=== PATIENT | female | born 1980 | race Hispanic/Latino ===

== ENCOUNTER 2018-09-27 22:15 | Emergency (ER) | payer BC ==
[~2018-09-27 22:15] MED LIST: CHLO25TA3 PO; POTA15TA11 PO; TAMS-1 PO
[2018-09-27 23:13] LABS: APPEARANCE,URINE Clear (CLEAR); BILIRUBIN,URINE Negative (NEGATIVE); COLOR,URINE Yellow (YELLOW); GLUCOSE, URINE (UA) Negative (NEGATIVE); KETONES,URINE Negative (NEGATIVE); LEUKOCYTE ESTERASE ,URINE Trace (NEGATIVE); NITRATE,URINE Negative (NEGATIVE); OCCULT BLOOD,URINE Large (NEGATIVE); PROTEIN,URINE Trace mg/dL (NEGATIVE)
[2018-09-27 23:27] LABS: BACTERIA,URINE Few /HPF (None Seen); CALCIUM OXALATE CRYSTALS,UR Rare /LPF (None Seen); SQUAMOUS EPITHELIAL CELL,UR Few /HPF (0-2)
[2018-09-27] MEDS ORDERED: ONDANSETRON HCL 4 MG/2 ML VIAL ONE (23:29)
[2018-09-27] MEDS ORDERED: SODIUM CHLORIDE 0.9% 1000ML 1,000 ML IV ONE (23:30)
[2018-09-27] MEDS ORDERED: MORPHINE SULFATE 4 MG/1ML SYG ONE (23:30)
[2018-09-27 23:31] LABS: BASOPHILS % (AUTO) 0.6 % (0.0-5.0); EOSINOPHILS % (AUTO) 1.2 % (0.0-8.0); HEMATOCRIT 40.6 % (36-48); LYMPHOCYTES % (AUTO) 27.6 % (21.0-51.0); MEAN CORPUSCULAR HGB CONC 33.7 g/dL (32.0-36.0); MEAN CORPUSCULAR VOLUME 86.1 fL (79-99); MONOCYTES % (AUTO) 6.8 % (3.0-13.0); NEUTROPHILS % (AUTO) 63.8 % (40.0-77.0); NUCLEATED RED BLOOD CELLS 0.1 % (0.0-0.19); PLATELET COUNT (AUTO) 315 K/uL (130-400); RED BLOOD CELL COUNT(AUTO) 4.72 MIL/uL (4.00-5.50); RED CELL DISTRIBUTION WIDTH 13.9 % (11.0-15.5); WHITE BLOOD COUNT (AUTO) 11.1 K/uL (4.8-10.8)
[2018-09-27 23:38] LABS: POTASSIUM 4.3 mmol/L (3.5-5.1)
[2018-09-27 23:52] LABS: ALBUMIN 3.6 g/dL (3.5-5.0); BILIRUBIN,TOTAL 0.2 mg/dL (0.2-1.0); CREATININE 0.7 mg/dL (0.5-1.5); TOTAL PROTEIN, SERUM 7.2 g/dL (6.0-8.3)
[2018-09-28] MEDS ORDERED: KETOROLAC TROMETHAMINE 30MG/ML ONE (01:09)
== END 2018-09-28 01:31 | disposition home or self-care (01) ==
LOC: EDH 22:15
DX: N20.0 Calculus of kidney (principal); R11.2 Nausea with vomiting, unspecified; Z98.890 Other specified postprocedural states; Z90.49 Acquired absence of other specified parts of digestive tract
CPT/HCPCS: 36415; 74176; 80053; 81001; 81025; 83690; 85025; 96361 ×2; 96374; 96375 ×2; 99285; J1885; J2270; J2405; J7030

== ENCOUNTER 2018-11-05 11:55 | Inpatient (IN) | payer BC | END 2018-11-06 17:05 | disposition home or self-care (01) | LOC: EDH 11:55 → WSH 11-06 00:31 → EDHIP 16:44 ==

== ENCOUNTER 2018-11-17 13:50 | Inpatient (IN) | payer BC ==
[~2018-11-17] VITALS: Ht 162.6 cm; Wt 97.2 kg
[2018-11-17] MEDS ORDERED: SODIUM CHLORIDE 0.9% 1000ML 1,000 ML IV ONE ×2 (14:21→19:40)
[2018-11-17] MEDS ORDERED: ONDANSETRON HCL 4 MG/2 ML VIAL ONE (14:21)
[2018-11-17] MEDS ORDERED: KETOROLAC TROMETHAMINE 30MG/ML ONE (14:21)
[2018-11-17 14:28] LABS: BASOPHILS % (AUTO) 0.7 % (0.0-5.0); EOSINOPHILS % (AUTO) 0.8 % (0.0-8.0); HEMATOCRIT 39.7 % (36-48); LYMPHOCYTES % (AUTO) 18.5 % (21.0-51.0); MEAN CORPUSCULAR HEMOGLOBIN 29.3 pg (27.0-33.0); MEAN CORPUSCULAR HGB CONC 34.2 g/dL (32.0-36.0); MEAN CORPUSCULAR VOLUME 85.6 fL (79-99); MONOCYTES % (AUTO) 6.3 % (3.0-13.0); NEUTROPHILS % (AUTO) 73.7 % (40.0-77.0); PLATELET COUNT (AUTO) 325 K/uL (130-400); RED BLOOD CELL COUNT(AUTO) 4.64 MIL/uL (4.00-5.50); RED CELL DISTRIBUTION WIDTH 13.9 % (11.0-15.5); WHITE BLOOD COUNT (AUTO) 11.5 K/uL (4.8-10.8)
[2018-11-17 14:43] LABS: CARBON DIOXIDE 21 mmol/L (21-32); CHLORIDE 107 mmol/L (101-111); CREATININE 0.7 mg/dL (0.5-1.5); GLOMERULAR FILTR. RATE CALC 100 mL/min (>60); GLUCOSE,RANDOM 108 mg/dL (70-105); INR 1.02 (0.85-1.15); PARTIAL THROMBOPLASTIN TIME 27.2 SEC (26.3-35.5); POTASSIUM 4.4 mmol/L (3.5-5.1); PROTHROMBIN TIME 10.7 SEC (9.6-11.6); SODIUM SERUM 139 mmol/L (136-145); UREA NITROGEN, BLOOD 14 mg/dL (7-18)
[2018-11-17 14:53] LABS: ALANINE AMINOTRANSFERASE 42 U/L (12-78); ALBUMIN 3.5 g/dL (3.5-5.0); ASPARTATE AMINOTRANSFERASE 36 U/L (10-37); BILIRUBIN,DIRECT < 0.1 mg/dL (0.0-0.3); BILIRUBIN,TOTAL 0.3 mg/dL (0.2-1.0); HCG,QUANTITATIVE 0 mIU/mL (0-5); LIPASE 148 U/L (114-286); TOTAL PROTEIN, SERUM 7.5 g/dL (6.0-8.3)
[2018-11-17] MEDS ORDERED: MORPHINE SULFATE 4 MG/1ML SYG ONE (15:08)
[2018-11-17] MEDS ORDERED: DiphenhydrAMINE HCL 50 MG/ML VIAL ONE ×2 (15:38→19:55)
[2018-11-17] MEDS ORDERED: MORPHINE SULFATE 2 MG/ML 1ML SYG IV PRN (19:00)
[2018-11-17] MEDS ORDERED: ONDANSETRON HCL 4 MG/2 ML VIAL IV PRN (19:00)
[2018-11-17] MEDS ORDERED: MORPHINE SULFATE 4 MG/1ML SYG IV PRN (19:00)
[2018-11-17] MEDS ORDERED: ACETAMINOPHEN 325 MG TAB PO PRN ×2 (19:00)
[2018-11-17] MEDS ORDERED: ZOLPIDEM TARTRATE 5 MG TAB PO PRN (19:00)
[2018-11-17] MEDS ORDERED: MORPHINE SULFATE 2 MG/ML 1ML SYG ONE (19:40)
[2018-11-17] MEDS ORDERED: DiphenhydrAMINE HCL 50 MG/ML VIAL IV PRN (20:00)
[2018-11-17 21:36] VITALS: BP 102/58
[2018-11-17] MEDS: SODIUM CHLORIDE 0.9% 1000ML 1,000 ML IV SCH (22:58)
[2018-11-17] MEDS: FAMOTIDINE/PF 20 MG/2 ML VIAL IV SCH (22:58)
[2018-11-17] MEDS: HYDROMORPHONE 1 MG/1 ML AMP IVP PRN (22:59)
[2018-11-18] VITALS (25 sets, daily range): BP systolic 91–126; BP diastolic 56–74
[2018-11-18 02:23] LABS: APPEARANCE,URINE Clear (CLEAR); BILIRUBIN,URINE Negative (NEGATIVE); COLOR,URINE Yellow (YELLOW); GLUCOSE, URINE (UA) Negative (NEGATIVE); KETONES,URINE Negative (NEGATIVE); LEUKOCYTE ESTERASE ,URINE Negative (NEGATIVE); NITRATE,URINE Negative (NEGATIVE); OCCULT BLOOD,URINE Negative (NEGATIVE); PH,URINE 5.5 (5.0-8.0); PROTEIN,URINE Negative (NEGATIVE)
[2018-11-18 02:24] LABS: BASOPHILS % (AUTO) 0.3 % (0.0-5.0); EOSINOPHILS % (AUTO) 2.1 % (0.0-8.0); HEMATOCRIT 38.8 % (36-48); MEAN CORPUSCULAR HEMOGLOBIN 29.9 pg (27.0-33.0); MEAN CORPUSCULAR HGB CONC 33.9 g/dL (32.0-36.0); MEAN CORPUSCULAR VOLUME 88.2 fL (79-99); MONOCYTES % (AUTO) 6.4 % (3.0-13.0); NEUTROPHILS % (AUTO) 60.2 % (40.0-77.0); PLATELET COUNT (AUTO) 311 K/uL (130-400); RED CELL DISTRIBUTION WIDTH 13.9 % (11.0-15.5); WHITE BLOOD COUNT (AUTO) 9.8 K/uL (4.8-10.8)
[2018-11-18 02:44] LABS: ALBUMIN 3.2 g/dL (3.5-5.0); BILIRUBIN,TOTAL 0.3 mg/dL (0.2-1.0); CREATININE 0.8 mg/dL (0.5-1.5); POTASSIUM 3.9 mmol/L (3.5-5.1); TOTAL PROTEIN, SERUM 6.8 g/dL (6.0-8.3)
[2018-11-18] MEDS ORDERED: LEVOFLOXACIN 500 MG/D5W 100 ML 100 ML IV SCH (03:00)
[2018-11-18] MEDS: SODIUM CHLORIDE 0.9% 1000ML 1,000 ML IV SCH ×2 (04:48→14:50)
[2018-11-18] MEDS: HYDROMORPHONE 1 MG/1 ML AMP IVP PRN ×3 (06:17→17:58)
[2018-11-18] MEDS ORDERED: HYDROCHLOROTHIAZIDE 25 MG TABLET PO SCH (09:00)
[2018-11-18] MEDS: FAMOTIDINE/PF 20 MG/2 ML VIAL IV SCH (09:39)
[2018-11-18] MEDS ORDERED: IOHEXOL-350 50ML VIAL IV ONE (10:57)
[2018-11-18] MEDS ORDERED: LACTATED RINGERS 1000ML 1,000 ML IV ONE (11:09)
[2018-11-18] MEDS ORDERED: PROPOFOL 10 MG/ML 20ML VIAL IV ONE (12:01)
[2018-11-18] MEDS ORDERED: LIDOCAINE PF 2% 5ML ABBOJECT ONE (12:01)
[2018-11-18] MEDS ORDERED: MIDAZOLAM HCL 1 MG/ML 2ML VIAL ONE (12:01)
[2018-11-18] MEDS ORDERED: FENTANYL CITRATE PF 50 MCG/1 ML 2ML VIAL ONE ×2 (12:02→12:17)
--- NOTE | 2018-11-18 12:04 | NUR ---
DCP CM met with pt discussed dc plans. Pt is independent prior to admission, lives at home with spouse. Denies any equipments/services. Pt feels safe to go back home, still drives, spouse able to assist with transportation and needs as necessary. DC plan to home once stable. CM to cont to follow up. Addendum: 11/18/18 at 1208 by LARA DILLON LVN CM Amended: Links added.
[2018-11-18] MEDS ORDERED: DEXAMETHASONE SOD PHOSPHATE 10MG/ML 1ML VIAL ONE ×2 (12:08→12:23)
[2018-11-18] MEDS ORDERED: ONDANSETRON HCL 4 MG/2 ML VIAL ONE (12:09)
[2018-11-18] MEDS ORDERED: SCOPOLAMINE HYDROBROMIDE 1 EACH ADH..PATCH TD ONE (12:11)
[2018-11-18] MEDS ORDERED: MEPERIDINE-PF 25 MG/ML SYG ONE ×2 (12:17→13:43)
[2018-11-18] MEDS ORDERED: EPHEDRINE SULFATE 50 MG/ML AMPULE ONE (12:21)
[2018-11-18] MEDS ORDERED: ROCURONIUM 10MG/1ML SYR 10 MG/ML ML ONE (12:33)
[2018-11-18] MEDS ORDERED: GLYCOPYRROLATE 1 MG/5 ML SYRINGE ONE (12:46)
[2018-11-18] MEDS ORDERED: NEOSTIGMINE 5MG/5ML SYR IV ONE (12:47)
[2018-11-18] MEDS ORDERED: MORPHINE SULFATE 4 MG/1ML SYG ONE (13:41)
--- NOTE | 2018-11-18 17:30 | NUR ---
PT VOIDED WITHOUT DIFFICULTY. NO BLOOD.
--- NOTE | 2018-11-18 17:40 | NUR ---
PT D/C HOME USING TEACH BACK TECHNIQUE RE: FOLLOW UP WITH DR. SAPP NEXT THURSDAY CALL TO SET UP TIME OF APPOINTMENT. AT PHONE #[phone]. FOR REMOVAL OF RENAL STENT. FOLLOW UP WITH PRIMARY DOCTOR IN 3-4 DAYS. CALL TO SET UP YOUR APPOINTMENT. WILL BE GIVEN A PRESCRIPTION FOR ANTIBIOTICS AT DISCHARGE MAKE SURE TO PICK IT UP AT YOUR PREFERRED PHARMACY. MAKE SURE TO COMPLETE FULL COURSE OF ANTIBIOTIC THERAPY TO PREVENT SUPER INFECTIONS. IF FEVERS GREATER THAN 101.0 CALL YOUR PRIMARY DOCTOR COULD MEAN INFECTION IS BACK. IV OUT INTACT, NO BLEEDING, STRING ATTACHED TO SUPRAPUBIC AREA WITH TEGADERM. AAOX3, IN NO DISTRESS, DENIES ANY QUESTIONS. PRESCRIPTION FOR ANTIBIOTIC LEVAQUIN 500MG DAILY X 7 DAYS CALLED IN TO PHARMACY AT [facility] AT [address] [facility].
[2018-11-19] MEDS ORDERED: **HM** CHLORTHALIDONE 25MG PO SCH (09:00)
[2018-11-19] MEDS ORDERED: TAMSULOSIN HCL 0.4 MG CAP.ER.24H PO SCH (09:00)
[2018-11-19] MEDS ORDERED: POTASSIUM CITRATE 30 MEQ PO SCH (09:00)
== END 2018-11-18 18:15 | disposition home or self-care (01) | DRG 660 ==
LOC: EDH 13:50 → EDHIP 18:50 → 3AH 21:36
PROVIDERS: ADMIT Internal Medicine; ATTEND Internal Medicine
PROC: 0TF48ZZ Fragmentation in Left Kidney Pelvis, Via Natural or Artificial Opening Endoscopic (ICD-10-PCS; principal; 2018-11-18 12:45)
PROC: 0T778DZ Dilation of Left Ureter with Intraluminal Device, Via Natural or Artificial Opening Endoscopic (ICD-10-PCS; 2018-11-18 12:45)
DX: N20.0 Calculus of kidney (principal); Q61.5 Medullary cystic kidney; D72.829 Elevated white blood cell count, unspecified; N29 Other disorders of kidney and ureter in diseases classified elsewhere; N83.202 Unspecified ovarian cyst, left side; Z87.442 Personal history of urinary calculi; Z90.710 Acquired absence of both cervix and uterus; Z88.5 Allergy status to narcotic agent; Z83.3 Family history of diabetes mellitus; Z80.9 Family history of malignant neoplasm, unspecified; Z84.1 Family history of disorders of kidney and ureter
CPT/HCPCS: 36415; 74018; 74176; 74420; 77002; 80048; 80053; 80076; 81003; 83690; 84702; 85025; 85610; 85730; 87040; 87088; A4354; C1758; C1769; C2617; G0378; J1100; J1170; J1200; J1885; J1956; J2001; J2175; J2250; J2270; J2405; J2704; J2710; J3010; J3490; J7030; J7120; Q9967

== ENCOUNTER 2019-04-01 22:56 | Emergency (ER) | payer BC ==
[2019-04-01 23:25] LABS: BASOPHILS % (AUTO) 0.4 % (0.0-5.0); HEMATOCRIT 40.5 % (36-48); LYMPHOCYTES % (AUTO) 31.9 % (21.0-51.0); MEAN CORPUSCULAR HEMOGLOBIN 28.4 pg (27.0-33.0); MEAN CORPUSCULAR HGB CONC 33.1 g/dL (32.0-36.0); MEAN CORPUSCULAR VOLUME 85.8 fL (79-99); NEUTROPHILS % (AUTO) 57.4 % (40.0-77.0); PLATELET COUNT (AUTO) 330 K/uL (130-400); RED BLOOD CELL COUNT(AUTO) 4.72 MIL/uL (4.00-5.50); RED CELL DISTRIBUTION WIDTH 12.8 % (11.0-15.5); WHITE BLOOD COUNT (AUTO) 10.1 K/uL (4.8-10.8)
[2019-04-01 23:26] LABS: APPEARANCE,URINE Clear (CLEAR); BILIRUBIN,URINE Negative (NEGATIVE); COLOR,URINE Yellow (YELLOW); GLUCOSE, URINE (UA) Negative (NEGATIVE); KETONES,URINE Trace mg/dL (NEGATIVE); LEUKOCYTE ESTERASE ,URINE Negative (NEGATIVE); NITRATE,URINE Negative (NEGATIVE); OCCULT BLOOD,URINE Negative (NEGATIVE); PH,URINE 5.5 (5.0-8.0); PROTEIN,URINE Negative (NEGATIVE)
[2019-04-01] MEDS ORDERED: ONDANSETRON HCL 4 MG/2 ML VIAL ONE (23:28)
[2019-04-01] MEDS ORDERED: MORPHINE SULFATE 4 MG/1ML SYG ONE (23:28)
[2019-04-01 23:31] LABS: CREATININE 0.6 mg/dL (0.5-1.5); POTASSIUM 3.6 mmol/L (3.5-5.1)
[2019-04-01 23:36] LABS: ALBUMIN 3.7 g/dL (3.5-5.0); BILIRUBIN,TOTAL 0.3 mg/dL (0.2-1.0); TOTAL PROTEIN, SERUM 7.5 g/dL (6.0-8.3)
[2019-04-02] MEDS ORDERED: KETOROLAC TROMETHAMINE 15MG/ML ONE (00:29)
== END 2019-04-02 02:23 | disposition home or self-care (01) ==
LOC: EDH 22:56
DX: N20.2 Calculus of kidney with calculus of ureter (principal); R11.10 Vomiting, unspecified; Z98.890 Other specified postprocedural states; Z90.49 Acquired absence of other specified parts of digestive tract; Z90.710 Acquired absence of both cervix and uterus
CPT/HCPCS: 36415; 76770; 80053; 81003; 85025; 96374; 96375 ×2; 99284; J1885; J2270; J2405

== ENCOUNTER 2019-04-11 16:09 | Emergency (ER) | payer BC ==
[2019-04-11] MEDS ORDERED: KETOROLAC TROMETHAMINE 30MG/ML ONE (17:08)
[2019-04-11 17:36] LABS: APPEARANCE,URINE Cloudy (CLEAR); BILIRUBIN,URINE Negative (NEGATIVE); COLOR,URINE Yellow (YELLOW); GLUCOSE, URINE (UA) Negative (NEGATIVE); KETONES,URINE Negative (NEGATIVE); LEUKOCYTE ESTERASE ,URINE Trace (NEGATIVE); NITRATE,URINE Negative (NEGATIVE); OCCULT BLOOD,URINE Large (NEGATIVE); PROTEIN,URINE POS 1+ mg/dL (NEGATIVE); UROBILINOGEN,URINE 0.2 mg/dL (0.2-1.0)
[2019-04-11 17:45] LABS: HCG,QUAL RESULT NEGATIVE (NEGATIVE)
[2019-04-11 17:59] LABS: RBC,URINE 26-50 /HPF (0-1); WBC,URINE 0-1 /HPF (0-1)
[2019-04-11 18:00] LABS: BACTERIA,URINE Few /HPF (None Seen)
== END 2019-04-11 17:52 | disposition left against medical advice (07) ==
LOC: EDH 16:09
DX: R10.9 Unspecified abdominal pain (principal); Z90.49 Acquired absence of other specified parts of digestive tract; Z90.710 Acquired absence of both cervix and uterus; Z98.890 Other specified postprocedural states
CPT/HCPCS: 81001; 81025; 99283; J1885

== ENCOUNTER 2019-06-06 15:55 | Emergency (ER) | payer BC ==
[2019-06-06 16:34] LABS: BASOPHILS % (AUTO) 0.3 % (0.0-5.0); EOSINOPHILS % (AUTO) 0.7 % (0.0-8.0); HEMATOCRIT 40.2 % (36-48); LYMPHOCYTES % (AUTO) 22.2 % (21.0-51.0); MEAN CORPUSCULAR HEMOGLOBIN 28.5 pg (27.0-33.0); MEAN CORPUSCULAR HGB CONC 33.3 g/dL (32.0-36.0); MEAN CORPUSCULAR VOLUME 85.4 fL (79-99); MONOCYTES % (AUTO) 5.3 % (3.0-13.0); PLATELET COUNT (AUTO) 307 K/uL (130-400); RED BLOOD CELL COUNT(AUTO) 4.71 MIL/uL (4.00-5.50); RED CELL DISTRIBUTION WIDTH 12.7 % (11.0-15.5); WHITE BLOOD COUNT (AUTO) 8.7 K/uL (4.8-10.8)
[2019-06-06 16:51] LABS: INR 0.98 (0.85-1.15); PARTIAL THROMBOPLASTIN TIME 28.7 SEC (26.3-35.5); PROTHROMBIN TIME 10.6 SEC (9.6-11.6)
[2019-06-06 16:53] LABS: APPEARANCE,URINE Cloudy (CLEAR); BILIRUBIN,URINE Negative (NEGATIVE); COLOR,URINE Yellow (YELLOW); GLUCOSE, URINE (UA) Negative (NEGATIVE); KETONES,URINE Negative (NEGATIVE); LEUKOCYTE ESTERASE ,URINE Small (NEGATIVE); NITRATE,URINE Negative (NEGATIVE); OCCULT BLOOD,URINE Small (NEGATIVE); PH,URINE 5.5 (5.0-8.0); PROTEIN,URINE POS 1+ mg/dL (NEGATIVE)
[2019-06-06 17:04] LABS: BACTERIA,URINE Few /HPF (None Seen)
[2019-06-06] MEDS ORDERED: ONDANSETRON HCL 4 MG/2 ML VIAL ONE (17:04)
[2019-06-06] MEDS ORDERED: KETOROLAC TROMETHAMINE 30MG/ML ONE (17:04)
[2019-06-06 17:08] LABS: CREATININE 0.8 mg/dL (0.5-1.5)
[2019-06-06 17:15] LABS: ALBUMIN 3.7 g/dL (3.5-5.0); BILIRUBIN,TOTAL 0.3 mg/dL (0.2-1.0); TOTAL PROTEIN, SERUM 7.4 g/dL (6.0-8.3)
[2019-06-06] MEDS ORDERED: TRAMADOL HCL 50 MG TABLET ONE (17:47)
[2019-06-06] MEDS ORDERED: CEFTRIAXONE SODIUM 1 GM ONE (17:51)
[2019-06-06] MEDS ORDERED: TAMSULOSIN HCL 0.4 MG CAP.ER.24H ONE (17:51)
[2019-06-07] MEDS ORDERED: POTA-9 PO (21:21)
[2019-06-07] MEDS ORDERED: ONDA4TAB4 PO (21:24)
[2019-06-07] MEDS ORDERED: HYDR12.54 PO (21:24)
[2019-06-07] MEDS ORDERED: CEPH500C2 PO (21:24)
[2019-06-07] MEDS ORDERED: TRAM50TA4 PO (21:26)
== END 2019-06-06 19:00 | disposition home or self-care (01) ==
LOC: EDH 15:55
DX: N20.1 Calculus of ureter (principal); N39.0 Urinary tract infection, site not specified; N13.39 Other hydronephrosis; Z90.49 Acquired absence of other specified parts of digestive tract; Z90.710 Acquired absence of both cervix and uterus; Z98.890 Other specified postprocedural states
CPT/HCPCS: 36415; 74176; 80053; 81001; 82150; 83690; 85025; 85610; 85730; 87088; 96374; 96375 ×2; 99284; J0696; J1885; J2405

== ENCOUNTER 2019-06-07 17:46 | Inpatient (IN) | payer BC ==
[~2019-06-07] VITALS: Ht 162.6 cm; Wt 99.8 kg
[2019-06-07 18:27] LABS: BASOPHILS % (AUTO) 0.3 % (0.0-5.0); EOSINOPHILS % (AUTO) 1.8 % (0.0-8.0); HEMATOCRIT 36.6 % (36-48); LYMPHOCYTES % (AUTO) 21.8 % (21.0-51.0); MEAN CORPUSCULAR HEMOGLOBIN 28.5 pg (27.0-33.0); MEAN CORPUSCULAR HGB CONC 33.6 g/dL (32.0-36.0); MEAN CORPUSCULAR VOLUME 84.9 fL (79-99); MONOCYTES % (AUTO) 4.8 % (3.0-13.0); NEUTROPHILS % (AUTO) 70.8 % (40.0-77.0); PLATELET COUNT (AUTO) 295 K/uL (130-400); RED BLOOD CELL COUNT(AUTO) 4.31 MIL/uL (4.00-5.50); RED CELL DISTRIBUTION WIDTH 12.7 % (11.0-15.5); WHITE BLOOD COUNT (AUTO) 7.8 K/uL (4.8-10.8)
[2019-06-07 18:30] LABS: APPEARANCE,URINE Cloudy (CLEAR); BILIRUBIN,URINE Negative (NEGATIVE); COLOR,URINE Yellow (YELLOW); GLUCOSE, URINE (UA) Negative (NEGATIVE); KETONES,URINE Trace mg/dL (NEGATIVE); LEUKOCYTE ESTERASE ,URINE Trace (NEGATIVE); NITRATE,URINE Negative (NEGATIVE); OCCULT BLOOD,URINE Moderate (NEGATIVE); PH,URINE 5.5 (5.0-8.0); PROTEIN,URINE Negative (NEGATIVE); UROBILINOGEN,URINE 0.2 mg/dL (0.2-1.0)
[2019-06-07 18:40] LABS: INR 0.92 (0.85-1.15)
[2019-06-07 18:46] LABS: CREATININE 0.7 mg/dL (0.5-1.5); POTASSIUM 3.3 mmol/L (3.5-5.1)
[2019-06-07 18:50] LABS: BACTERIA,URINE Moderate /HPF (None Seen); MUCUS,URINE Moderate LPF (None Seen); SQUAMOUS EPITHELIAL CELL,UR Many /HPF (0-2)
[2019-06-07 18:52] LABS: ALBUMIN 3.5 g/dL (3.5-5.0); BILIRUBIN,TOTAL 0.3 mg/dL (0.2-1.0)
[2019-06-07] MEDS ORDERED: ONDANSETRON HCL 4 MG/2 ML VIAL ONE (19:13)
[2019-06-07] MEDS ORDERED: HYDROMORPHONE 1 MG/1 ML AMP ONE (19:14)
[2019-06-07] MEDS ORDERED: HYDROMORPHONE HCL 2 MG/ML VIAL IVP PRN (19:45)
[2019-06-07] MEDS: LACTATED RINGERS 1000ML 1,000 ML IV SCH (19:45)
[2019-06-07] MEDS ORDERED: ACETAMINOPHEN 325 MG TAB PO PRN (19:45)
[2019-06-07] MEDS: CEFTRIAXONE SODIUM 1 GM IVP SCH (20:00)
[2019-06-07] MEDS ORDERED: HYDROMORPHONE 1 MG/1 ML AMP IVP PRN (20:15)
[2019-06-07] MEDS ORDERED: CEFTRIAXONE SODIUM 1 GM ONE (20:20)
[2019-06-07] MEDS ORDERED: LACTATED RINGERS 1000ML 1,000 ML IV ONE (20:21)
[2019-06-07 20:58] VITALS: BP 121/95
[2019-06-07] MEDS ORDERED: POTA-9 PO (21:21)
[2019-06-07] MEDS ORDERED: HYDR12.54 PO (21:24)
[2019-06-07] MEDS ORDERED: ONDA4TAB4 PO (21:24)
[2019-06-07] MEDS ORDERED: CEPH500C2 PO (21:24)
[2019-06-07] MEDS ORDERED: TRAM50TA4 PO (21:26)
[2019-06-07] MEDS: FAMOTIDINE 20MG TAB 20 MG TAB PO SCH (22:50)
[2019-06-07 23:52] VITALS: BP 113/77
[2019-06-08] VITALS (22 sets, daily range): BP systolic 92–132; BP diastolic 55–96
[2019-06-08] MEDS: ONDANSETRON HCL 4 MG/2 ML VIAL IV PRN ×2 (00:28→06:36)
[2019-06-08] MEDS ORDERED: HYDROMORPHONE HCL 0.5 MG/0.5 ML ML ONE (04:59)
[2019-06-08 05:26] LABS: BASOPHILS % (AUTO) 0.4 % (0.0-5.0); EOSINOPHILS % (AUTO) 0.7 % (0.0-8.0); HEMATOCRIT 35.7 % (36-48); LYMPHOCYTES % (AUTO) 18.9 % (21.0-51.0); MEAN CORPUSCULAR HEMOGLOBIN 28.6 pg (27.0-33.0); MEAN CORPUSCULAR HGB CONC 32.5 g/dL (32.0-36.0); MEAN CORPUSCULAR VOLUME 87.9 fL (79-99); MONOCYTES % (AUTO) 5.6 % (3.0-13.0); PLATELET COUNT (AUTO) 289 K/uL (130-400); RED BLOOD CELL COUNT(AUTO) 4.06 MIL/uL (4.00-5.50); RED CELL DISTRIBUTION WIDTH 12.8 % (11.0-15.5); WHITE BLOOD COUNT (AUTO) 8.3 K/uL (4.8-10.8)
[2019-06-08 05:42] LABS: ALBUMIN 3.1 g/dL (3.5-5.0); BILIRUBIN,TOTAL 0.4 mg/dL (0.2-1.0); CREATININE 0.7 mg/dL (0.5-1.5); MAGNESIUM 1.7 mg/dL (1.80-2.40); TOTAL PROTEIN, SERUM 6.4 g/dL (6.0-8.3)
[2019-06-08 06:17] LABS: POTASSIUM 3.8 mmol/L (3.5-5.1)
[2019-06-08] MEDS: LACTATED RINGERS 1000ML 1,000 ML IV SCH ×2 (08:43→10:34)
[2019-06-08] MEDS: CEFTRIAXONE SODIUM 1 GM IVP SCH (08:43)
[2019-06-08] MEDS ORDERED: MEPERIDINE-PF 25 MG/ML SYG ONE (09:09)
[2019-06-08] MEDS ORDERED: IOHEXOL-350 50ML VIAL IV ONE (09:11)
[2019-06-08] MEDS ORDERED: SCOPOLAMINE HYDROBROMIDE 1 EACH ADH..PATCH TD ONE (09:19)
[2019-06-08] MEDS ORDERED: MIDAZOLAM HCL 1 MG/ML 2ML VIAL ONE (09:23)
[2019-06-08] MEDS ORDERED: DEXAMETHASONE SOD PHOSPHATE 10MG/ML 1ML VIAL ONE (09:23)
[2019-06-08] MEDS ORDERED: LIDOCAINE PF 2% 5ML ABBOJECT ONE (09:23)
[2019-06-08] MEDS ORDERED: FENTANYL CITRATE PF 50 MCG/1 ML 2ML VIAL ONE (09:24)
[2019-06-08] MEDS ORDERED: ROCURONIUM 10MG/1ML SYR 10 MG/ML ML ONE (09:24)
[2019-06-08] MEDS ORDERED: ONDANSETRON HCL 4 MG/2 ML VIAL ONE (09:24)
[2019-06-08] MEDS ORDERED: PROPOFOL 10 MG/ML 20ML VIAL IV ONE (09:24)
[2019-06-08] MEDS ORDERED: NEOSTIGMINE 5MG/5ML SYR IV ONE (10:09)
[2019-06-08] MEDS ORDERED: GLYCOPYRROLATE 1 MG/5 ML SYRINGE ONE (10:09)
[2019-06-08] MEDS ORDERED: KETOROLAC TROMETHAMINE 30MG/ML ONE (10:56)
--- NOTE | 2019-06-08 13:09 | NUR ---
RD Notification Pt admitted with Hydronephrosis w/Renal and ureteral calculus. Pt with poor appetite related to pain. Pt NPO at time of screen. Diet order has been advanced to regular diet. Pt pending Lithotripsy procedure, as per EMR/MD note. Recommend advance diet as tolerated. RD to continue to monitor and to follow up with [facility] nutrition education. Please notify as additional nutrition concerns arise. Thank you. Addendum: 06/08/19 at [address] Amended: Links added.
[2019-06-08] MEDS ORDERED: ACETAMINOPHEN-CODEINE 300/30MG TAB PO ONE (14:15)
[2019-06-08] MEDS: FAMOTIDINE 20MG TAB 20 MG TAB PO SCH (14:52)
--- NOTE | 2019-06-08 15:58 | NUR ---
PETER NOTE/INITIAL PENDING PATIENT IN RESTROOM, PENDING INITIAL ASSESSMENT, WILL FOLLOW UP AT A LATER TIME. Addendum: 06/08/19 at 1559 by SONJA MILNER RN CM Amended: Links added.
--- NOTE | 2019-06-08 20:30 | NUR ---
Discharge note: Pt fully awake and very responsive. Verbalized she can't wait to go home. VS are stable. Discharge home instructions given. Verbalized understanding. Denies feeling of discomfort. No apparent distress noted. Discharge to home via wheelchair.
--- NOTE | 2019-06-09 08:54 | NUR ---
CM NOTE PATIENT DISCHARGED HOME, NO NEEDS VERBALIZED BY NURSING STAFF.
== END 2019-06-08 20:30 | disposition home or self-care (01) | DRG 660 ==
LOC: EDH 17:46 → EDHIP 19:42 → 3DH 20:53
PROVIDERS: ADMIT Internal Medicine; ATTEND Internal Medicine
PROC: 0TC68ZZ Extirpation of Matter from Right Ureter, Via Natural or Artificial Opening Endoscopic (ICD-10-PCS; principal; 2019-06-08 09:25)
PROC: 0T768DZ Dilation of Right Ureter with Intraluminal Device, Via Natural or Artificial Opening Endoscopic (ICD-10-PCS; 2019-06-08 09:25)
DX: N13.6 Pyonephrosis (principal); Q61.5 Medullary cystic kidney; Z87.442 Personal history of urinary calculi; E11.9 Type 2 diabetes mellitus without complications; Z90.710 Acquired absence of both cervix and uterus; E66.9 Obesity, unspecified; Z83.3 Family history of diabetes mellitus; Z90.49 Acquired absence of other specified parts of digestive tract
CPT/HCPCS: 36415; 74018; 80053; 81001; 82360; 83735; 85025; 85610; 85730; 87088; A4354; C1758; C1769; C1894; C2617; G0378; J0696; J1100; J1170; J1885; J2001; J2175; J2250; J2405; J2704; J2710; J3010; J3490; J7120; Q9967

== ENCOUNTER 2019-07-12 19:29 | Emergency (ER) | payer BC ==
[~2019-07-12 19:29] MED LIST changes: +CEPH500C2 PO; +ONDA4TAB4 PO; +POTA-9 PO; -POTA15TA11 PO
[2019-07-12] MEDS ORDERED: ONDANSETRON HCL 4 MG/2 ML VIAL ONE (20:04)
[2019-07-12] MEDS ORDERED: MORPHINE SULFATE 8 MG/ML VIAL ONE (20:05)
[2019-07-12 20:08] LABS: APPEARANCE,URINE Clear (CLEAR); BILIRUBIN,URINE Negative (NEGATIVE); COLOR,URINE Yellow (YELLOW); GLUCOSE, URINE (UA) Negative (NEGATIVE); KETONES,URINE Negative (NEGATIVE); LEUKOCYTE ESTERASE ,URINE Trace (NEGATIVE); NITRATE,URINE Negative (NEGATIVE); OCCULT BLOOD,URINE Small (NEGATIVE); PROTEIN,URINE Negative (NEGATIVE); UROBILINOGEN,URINE 0.2 mg/dL (0.2-1.0)
[2019-07-12 20:13] LABS: BASOPHILS % (AUTO) 0.3 % (0.0-5.0); EOSINOPHILS % (AUTO) 0.5 % (0.0-8.0); HEMATOCRIT 39.6 % (36-48); LYMPHOCYTES % (AUTO) 15.3 % (21.0-51.0); MEAN CORPUSCULAR HEMOGLOBIN 28.5 pg (27.0-33.0); MEAN CORPUSCULAR HGB CONC 34.1 g/dL (32.0-36.0); MEAN CORPUSCULAR VOLUME 83.7 fL (79-99); MONOCYTES % (AUTO) 7.8 % (3.0-13.0); NEUTROPHILS % (AUTO) 75.7 % (40.0-77.0); PLATELET COUNT (AUTO) 318 K/uL (130-400); RED BLOOD CELL COUNT(AUTO) 4.73 MIL/uL (4.00-5.50); RED CELL DISTRIBUTION WIDTH 12.7 % (11.0-15.5); WHITE BLOOD COUNT (AUTO) 14.8 K/uL (4.8-10.8)
[2019-07-12 20:22] LABS: RBC,URINE 0-1 /HPF (0-1)
[2019-07-12 20:23] LABS: BACTERIA,URINE Rare /HPF (None Seen); SQUAMOUS EPITHELIAL CELL,UR 0-2 /HPF (0-2); WBC,URINE 0-1 /HPF (0-1)
[2019-07-12 20:27] LABS: POTASSIUM 3.7 mmol/L (3.5-5.1)
[2019-07-12 20:32] LABS: ALBUMIN 3.7 g/dL (3.5-5.0); BILIRUBIN,TOTAL 0.2 mg/dL (0.2-1.0); TOTAL PROTEIN, SERUM 7.5 g/dL (6.0-8.3)
[2019-07-12] MEDS ORDERED: MORPHINE SULFATE 4 MG/1ML SYG ONE (21:25)
[2019-08-16] MEDS ORDERED: ATOR10 PO (14:19)
[2019-08-16] MEDS ORDERED: HYDR25TA PO (14:19)
[2019-08-16] MEDS ORDERED: ACET1TAB12 PO (14:19)
[2019-08-16] MEDS ORDERED: POTA10CA44 PO ×2 (14:19)
[2019-08-16] MEDS ORDERED: OMEP40CA13 PO (14:19)
== END 2019-07-12 22:35 | disposition home or self-care (01) ==
LOC: EDH 19:29
DX: M54.5 Low back pain (principal); R10.9 Unspecified abdominal pain; Z90.49 Acquired absence of other specified parts of digestive tract; Z90.710 Acquired absence of both cervix and uterus; Z98.890 Other specified postprocedural states
CPT/HCPCS: 36415; 74176; 80053; 81001; 81025; 85025; 96374; 96375; 96376; 99284; J2270 ×2; J2405

== ENCOUNTER 2019-08-14 21:31 | Emergency (ER) | payer BC ==
[2019-08-14] MEDS ORDERED: ONDANSETRON HCL 4 MG/2 ML VIAL ONE (21:51)
[2019-08-14] MEDS ORDERED: FENTANYL CITRATE PF 50 MCG/1 ML 2ML VIAL ONE (21:52)
[2019-08-14] MEDS ORDERED: TAMSULOSIN HCL 0.4 MG CAP.ER.24H ONE (22:38)
[2019-08-14] MEDS ORDERED: KETOROLAC TROMETHAMINE 30MG/ML ONE (22:39)
[2019-08-15] MEDS ORDERED: FENTANYL CITRATE PF 50 MCG/1 ML 2ML VIAL ONE (00:22)
== END 2019-08-15 02:39 | disposition home or self-care (01) ==
LOC: EDH 21:31
DX: N23 Unspecified renal colic (principal); N20.1 Calculus of ureter; N20.0 Calculus of kidney; E11.9 Type 2 diabetes mellitus without complications; E78.00 Pure hypercholesterolemia, unspecified; Z90.49 Acquired absence of other specified parts of digestive tract; Z90.710 Acquired absence of both cervix and uterus; Z98.890 Other specified postprocedural states
CPT/HCPCS: 36415; 74176; 76770; 80053; 81001; 85025; 96374; 96375; 96376; 99284; J1885; J2405; J3010 ×2

== ENCOUNTER 2019-08-17 06:14 | Day surgery (SDC) | payer BC ==
[2019-08-16 12:01] LABS: BILIRUBIN,URINE Negative (NEGATIVE); COLOR,URINE Yellow (YELLOW); GLUCOSE, URINE (UA) Negative (NEGATIVE); KETONES,URINE Negative (NEGATIVE); LEUKOCYTE ESTERASE ,URINE Small (NEGATIVE); NITRATE,URINE Negative (NEGATIVE); OCCULT BLOOD,URINE Small (NEGATIVE); PH,URINE 5.5 (5.0-8.0); PROTEIN,URINE Negative (NEGATIVE); UROBILINOGEN,URINE 0.2 mg/dL (0.2-1.0)
[2019-08-16 12:03] LABS: APPEARANCE,URINE SLIGHTLY CLOUDY (CLEAR)
[2019-08-16 12:06] LABS: CREATININE 0.6 mg/dL (0.5-1.5); POTASSIUM 3.9 mmol/L (3.5-5.1)
[2019-08-16 12:33] LABS: BACTERIA,URINE Few /HPF (None Seen); CALCIUM OXALATE CRYSTALS,UR Few /LPF (None Seen)
[2019-08-16 13:53] VITALS: BP 135/88
--- NOTE | 2019-08-16 14:43 | NUR ---
UA FAXED AND REPORTED ABNORMAL UA TO DR. ALEX GUERRERO ASST. SHE WILL INFORM DR. SAPP
[2019-08-17] VITALS (23 sets, daily range): BP systolic 107–132; BP diastolic 46–89
[~2019-08-17] VITALS: Ht 161.3 cm; Wt 97.1 kg
[~2019-08-17 06:14] MED LIST changes: +ACET1TAB12 PO; +ATOR10 PO; -CEPH500C2 PO; -CHLO25TA3 PO; +HYDR25TA PO; +OMEP40CA13 PO; -ONDA4TAB4 PO; -POTA-9 PO; +POTA10CA44 PO
[2019-08-17] MEDS ORDERED: LACTATED RINGERS 1000ML 1,000 ML IV ONE (07:41)
[2019-08-17] MEDS ORDERED: GENTAMICIN 80 MG/NS 100 ML PB 100 ML IV ONE (07:41)
[2019-08-17] MEDS ORDERED: SCOPOLAMINE HYDROBROMIDE 1 EACH ADH..PATCH TD ONE (07:55)
[2019-08-17] MEDS ORDERED: CEFTRIAXONE SODIUM 1 GM ONE (07:55)
[2019-08-17] MEDS ORDERED: FENTANYL CITRATE PF 50 MCG/1 ML 2ML VIAL ONE ×3 (07:56→13:52)
[2019-08-17] MEDS ORDERED: SUCCINYLCHOLINE 200MG/10ML SYR ONE ×2 (10:16→11:05)
[2019-08-17] MEDS ORDERED: LIDOCAINE PF 2% 5ML ABBOJECT ONE (10:16)
[2019-08-17] MEDS ORDERED: DEXAMETHASONE SOD PHOSPHATE 10MG/ML 1ML VIAL ONE (10:16)
[2019-08-17] MEDS ORDERED: MIDAZOLAM HCL 1 MG/ML 2ML VIAL ONE (10:17)
[2019-08-17] MEDS ORDERED: ONDANSETRON HCL 4 MG/2 ML VIAL ONE (10:17)
[2019-08-17] MEDS ORDERED: GLYCOPYRROLATE 1 MG/5 ML SYRINGE ONE (10:17)
[2019-08-17] MEDS ORDERED: ROCURONIUM 10MG/1ML SYR 10 MG/ML ML ONE (10:18)
[2019-08-17] MEDS ORDERED: PROPOFOL 10 MG/ML 20ML VIAL IV ONE (10:18)
[2019-08-17] MEDS ORDERED: NEOSTIGMINE 5MG/5ML SYR IV ONE (10:18)
[2019-08-17] MEDS ORDERED: IOHEXOL-350 50ML VIAL IV ONE (11:03)
== END 2019-08-17 15:57 | disposition home or self-care (01) ==
LOC: DAH 06:14
PROVIDERS: ATTEND Urology
DX: N20.2 Calculus of kidney with calculus of ureter (principal); Q61.5 Medullary cystic kidney; E66.9 Obesity, unspecified; Z98.890 Other specified postprocedural states; Z98.891 History of uterine scar from previous surgery; Z11.59 Encounter for screening for other viral diseases
CPT/HCPCS: 36415; 52356; 74420; 80048; 81001; 82360; 87077; 87088; 87186; A4215; A4221; A4222; A4223 ×2; A4354; A4600; A4649; A4657; A4663; A6207; A6260; C1758; C1769; C2617 ×2; J0330 ×2; J0696; J1100; J1580; J2001; J2250; J2405; J2704; J2710; J3010 ×3; J3490; J7030 ×2; J7120 ×2; Q9967; U0003

== ENCOUNTER 2020-01-05 11:06 | Emergency (ER) | payer BC ==
[2020-01-05] MEDS ORDERED: ONDANSETRON HCL 4 MG/2 ML VIAL ONE (11:25)
[2020-01-05] MEDS ORDERED: MORPHINE SULFATE 4 MG/1ML SYG ONE (11:26)
[2020-01-05 11:36] LABS: BASOPHILS % (AUTO) 0.1 % (0.0-5.0); EOSINOPHILS % (AUTO) 1.5 % (0.0-8.0); HEMATOCRIT 39.3 % (36-48); LYMPHOCYTES % (AUTO) 25.2 % (21.0-51.0); MEAN CORPUSCULAR HEMOGLOBIN 29.4 pg (27.0-33.0); MEAN CORPUSCULAR HGB CONC 34.1 g/dL (32.0-36.0); MEAN CORPUSCULAR VOLUME 86.2 fL (79-99); MONOCYTES % (AUTO) 6.5 % (3.0-13.0); NEUTROPHILS % (AUTO) 66.3 % (40.0-77.0); PLATELET COUNT (AUTO) 272 K/uL (130-400); RED BLOOD CELL COUNT(AUTO) 4.56 MIL/uL (4.00-5.50); WHITE BLOOD COUNT (AUTO) 7.9 K/uL (4.8-10.8)
[2020-01-05] MEDS ORDERED: DiphenhydrAMINE HCL 50 MG/ML VIAL ONE (11:39)
[2020-01-05 11:40] LABS: APPEARANCE,URINE Clear (CLEAR); BILIRUBIN,URINE Negative (NEGATIVE); COLOR,URINE Yellow (YELLOW); GLUCOSE, URINE (UA) Negative (NEGATIVE); KETONES,URINE Negative (NEGATIVE); LEUKOCYTE ESTERASE ,URINE Trace (NEGATIVE); NITRATE,URINE Negative (NEGATIVE); OCCULT BLOOD,URINE Negative (NEGATIVE); PROTEIN,URINE Negative (NEGATIVE); UROBILINOGEN,URINE 0.2 mg/dL (0.2-1.0)
[2020-01-05 11:45] LABS: CREATININE 0.7 mg/dL (0.5-1.5)
[2020-01-05 11:52] LABS: ALBUMIN 3.7 g/dL (3.5-5.0); BILIRUBIN,TOTAL 0.2 mg/dL (0.2-1.0); TOTAL PROTEIN, SERUM 7.4 g/dL (6.0-8.3)
[2020-01-05 11:52] LABS: BACTERIA,URINE Moderate /HPF (None Seen); RBC,URINE 0-1 /HPF (0-1)
[2020-01-05] MEDS ORDERED: KETOROLAC TROMETHAMINE 30MG/ML ONE (13:56)
== END 2020-01-05 15:49 | disposition home or self-care (01) ==
LOC: EDH 11:06
DX: N83.202 Unspecified ovarian cyst, left side (principal); E78.00 Pure hypercholesterolemia, unspecified; E66.9 Obesity, unspecified; Z68.35 Body mass index [BMI] 35.0-35.9, adult
CPT/HCPCS: 36415; 74176; 76856; 80053; 81001; 85025; 87088; 96365; 96366; 96375; 99285; J1200; J1885; J2270; J2405

== ENCOUNTER 2020-03-20 15:46 | Inpatient (IN) | payer BC ==
[~2020-03-20] VITALS: Ht 162.6 cm; Wt 98.6 kg
[~2020-03-20 15:46] MED LIST changes: -OMEP40CA13 PO; +OMEP40CA21 PO
[2020-03-20] MEDS ORDERED: ONDANSETRON 4MG INJ ONE (16:26)
[2020-03-20] MEDS ORDERED: 0.9%NACL 1000ML 1,000 ML IV ONE (16:27)
[2020-03-20] MEDS ORDERED: KETOROLAC 30MG VIAL (30MG/ML) ONE (16:27)
[2020-03-20] MEDS ORDERED: MORPHINE 4 MG SYG ONE (16:27)
[2020-03-20 16:28] LABS: BASOPHILS % (AUTO) 0.3 % (0.0-5.0); EOSINOPHILS % (AUTO) 1.3 % (0.0-8.0); HEMATOCRIT 39.2 % (36-48); LYMPHOCYTES % (AUTO) 27.2 % (21.0-51.0); MEAN CORPUSCULAR HEMOGLOBIN 28.8 pg (27.0-33.0); MEAN CORPUSCULAR HGB CONC 33.4 g/dL (32.0-36.0); MEAN CORPUSCULAR VOLUME 86.2 fL (79-99); MONOCYTES % (AUTO) 7.7 % (3.0-13.0); NEUTROPHILS % (AUTO) 63.2 % (40.0-77.0); PLATELET COUNT (AUTO) 287 K/uL (130-400); RED BLOOD CELL COUNT(AUTO) 4.55 MIL/uL (4.00-5.50); RED CELL DISTRIBUTION WIDTH 12.4 % (11.0-15.5)
[2020-03-20 16:44] LABS: ALBUMIN 3.3 g/dL (3.5-5.0); BILIRUBIN,TOTAL 0.2 mg/dL (0.2-1.0); CREATININE 0.7 mg/dL (0.5-1.5); POTASSIUM 4.1 mmol/L (3.5-5.1); TOTAL PROTEIN, SERUM 7.2 g/dL (6.0-8.3)
[2020-03-20] MEDS ORDERED: TAMSULOSIN HCL 0.4 MG CAP.ER.24H ONE (17:52)
[2020-03-20 18:18] LABS: APPEARANCE,URINE Clear (CLEAR); BILIRUBIN,URINE Negative (NEGATIVE); COLOR,URINE Yellow (YELLOW); GLUCOSE, URINE (UA) Negative (NEGATIVE); KETONES,URINE Negative (NEGATIVE); LEUKOCYTE ESTERASE ,URINE Trace (NEGATIVE); NITRATE,URINE Negative (NEGATIVE); OCCULT BLOOD,URINE Small (NEGATIVE); PROTEIN,URINE Negative (NEGATIVE); UROBILINOGEN,URINE 0.2 mg/dL (0.2-1.0)
[2020-03-20 18:34] LABS: BACTERIA,URINE Few /HPF (None Seen); RBC,URINE None Seen /HPF (0-1)
[2020-03-20] MEDS ORDERED: MORPHINE 2 MG SYG ONE (18:54)
[2020-03-20] MEDS ORDERED: CEFTRIAXONE 1G VIAL ONE (20:45)
[2020-03-20] MEDS ORDERED: HYDROMORPHONE 0.5 MG SYG (0.5MG/0.5ML) ONE (21:00)
[2020-03-20] MEDS ORDERED: LACTULOSE 20 GM/30 ML UDCUP PO PRN (21:15)
[2020-03-20] MEDS ORDERED: DIPHENHYDRAMINE HCL 25 MG CAPSULE PO PRN (21:15)
[2020-03-20] MEDS: LACTATED RINGERS 1000ML 1,000 ML IV SCH (21:15)
[2020-03-20] MEDS: CEFTRIAXONE 1G VIAL IV SCH (21:15)
[2020-03-20] MEDS ORDERED: DiphenhydrAMINE HCL 50 MG/ML VIAL IV PRN (21:15)
[2020-03-20] MEDS ORDERED: ACETAMINOPHEN 325 MG TAB PO PRN ×2 (21:15)
[2020-03-20] MEDS ORDERED: MAG/ALUM/SIMETH 30 ML UDCUP PO PRN (21:15)
[2020-03-20] MEDS ORDERED: IBUPROFEN 800 MG TAB PO SCH (21:15)
[2020-03-20] MEDS ORDERED: NITROGLYCERIN 0.4 MG SL TAB SL PRN (21:15)
[2020-03-20] MEDS ORDERED: LACTATED RINGERS 1000ML 1,000 ML IV ONE (22:26)
[2020-03-20 23:00] VITALS: BP 134/99
[2020-03-20] MEDS ORDERED: CITA-107 PO (23:44)
[2020-03-21] VITALS (18 sets, daily range): BP systolic 98–150; BP diastolic 48–81
[2020-03-21] MEDS: LACTATED RINGERS 1000ML 1,000 ML IV SCH ×2 (05:16→17:15)
[2020-03-21] MEDS: ONDANSETRON 4MG INJ IV PRN ×2 (05:16→20:31)
[2020-03-21] MEDS: HYDROMORPHONE 0.5 MG SYG (0.5MG/0.5ML) IV PRN ×3 (05:21→20:31)
[2020-03-21] MEDS: FAMOTIDINE 20MG TAB PO SCH ×2 (08:14→20:19)
[2020-03-21] MEDS ORDERED: HYDROCHLOROTHIAZIDE 25 MG TABLET PO SCH (09:00)
[2020-03-21] MEDS ORDERED: TAMSULOSIN HCL 0.4 MG CAP.ER.24H PO SCH (09:00)
[2020-03-21] MEDS ORDERED: METOCLOPRAMIDE 10 MG/2 ML VIAL ONE (17:10)
[2020-03-21] MEDS ORDERED: SCOPOLAMINE HYDROBROMIDE 1 EACH ADH..PATCH TD ONE (17:10)
[2020-03-21] MEDS ORDERED: IOHEXOL-350 50ML VIAL IV ONE (17:15)
[2020-03-21] MEDS ORDERED: LIDOCAINE PF 100MG/5ML (2%) SYRINGE 5ML ONE (17:40)
[2020-03-21] MEDS ORDERED: SUCCINYLCHOLINE 200MG/10ML SYR ONE (17:40)
[2020-03-21] MEDS ORDERED: PROPOFOL 10 MG/ML 20ML VIAL IV ONE (17:41)
[2020-03-21] MEDS ORDERED: MIDAZOLAM HCL 1 MG/ML 2ML VIAL ONE (17:41)
[2020-03-21] MEDS ORDERED: FENTANYL CITRATE PF 50 MCG/1 ML 2ML VIAL ONE (18:03)
[2020-03-21] MEDS: CEFTRIAXONE 1G VIAL IV SCH ×2 (18:05→20:19)
[2020-03-21] MEDS ORDERED: EPHEDRINE SULFATE 50 MG/ML AMPULE ONE (18:07)
[2020-03-21] MEDS ORDERED: ALBUTEROL INHALER 90MCG/INH IH ONE (18:10)
[2020-03-21] MEDS ORDERED: PHENYLEPHRINE HCL 10 MG/ML 1ML VIAL IV ONE (18:16)
[2020-03-21] MEDS ORDERED: ATORVASTATIN 10 MG TABLET PO SCH (21:00)
[2020-03-21] MEDS ORDERED: CITALOPRAM 20 MG TABLET PO SCH (21:00)
[2020-03-21] MEDS ORDERED: CEPH500B PO ×2 (21:51→21:53)
[2020-03-21] MEDS ORDERED: TRAM50TA2 PO (21:54)
[2020-06-27] MEDS ORDERED: IBUP-2070 PO (07:54)
[2020-06-27] MEDS ORDERED: OMEP-420 PO (07:54)
[2020-10-27] MEDS ORDERED: LEVO500T90 PO (11:25)
== END 2020-03-21 22:20 | disposition home or self-care (01) | DRG 694 ==
LOC: EDH 15:46 → EDHIP 21:01 → 3DH 21:56
PROVIDERS: ADMIT Family Medicine; ATTEND Family Medicine
PROC: 0TJ98ZZ Inspection of Ureter, Via Natural or Artificial Opening Endoscopic (ICD-10-PCS; principal; 2020-03-21 17:51)
DX: N13.2 Hydronephrosis with renal and ureteral calculous obstruction (principal); Q61.5 Medullary cystic kidney; E78.00 Pure hypercholesterolemia, unspecified; E83.59 Other disorders of calcium metabolism; K21.9 Gastro-esophageal reflux disease without esophagitis; N29 Other disorders of kidney and ureter in diseases classified elsewhere; E66.9 Obesity, unspecified; E78.5 Hyperlipidemia, unspecified; Z84.1 Family history of disorders of kidney and ureter; Z90.710 Acquired absence of both cervix and uterus; Z87.442 Personal history of urinary calculi; Z68.37 Body mass index [BMI] 37.0-37.9, adult; Z79.899 Other long term (current) drug therapy; Z83.3 Family history of diabetes mellitus
CPT/HCPCS: 36415; 74021; 74176; 80053; 81001; 83690; 85025; C1758; C1769; C1894; G0378; J0330; J0696; J1170; J1885; J2001; J2250; J2270; J2370; J2405; J2704; J2765; J3010; J3490; J7030; J7120; Q9967

== ENCOUNTER 2020-05-09 18:03 | Emergency (ER) | payer BC ==
[~2020-05-09 18:03] MED LIST changes: -ACET1TAB12 PO; +CEPH500B PO; +CITA-107 PO; -OMEP40CA21 PO; +TRAM50TA2 PO
[2020-05-09] MEDS ORDERED: ONDANSETRON HCL 4 MG/2 ML VIAL ONE (18:29)
[2020-05-09] MEDS ORDERED: KETOROLAC TROMETHAMINE 30MG/ML ONE (18:30)
[2020-05-09] MEDS ORDERED: SODIUM CHLORIDE 0.9% 1000ML 1,000 ML IV ONE (18:30)
[2020-05-09 18:34] LABS: BASOPHILS % (AUTO) 0.3 % (0.0-5.0); EOSINOPHILS % (AUTO) 0.8 % (0.0-8.0); HEMATOCRIT 41.4 % (36-48); LYMPHOCYTES % (AUTO) 19.5 % (21.0-51.0); MEAN CORPUSCULAR HGB CONC 33.1 g/dL (32.0-36.0); MEAN CORPUSCULAR VOLUME 84.5 fL (79-99); MONOCYTES % (AUTO) 5.8 % (3.0-13.0); NEUTROPHILS % (AUTO) 73.1 % (40.0-77.0); PLATELET COUNT (AUTO) 342 K/uL (130-400); RED CELL DISTRIBUTION WIDTH 12.8 % (11.0-15.5); WHITE BLOOD COUNT (AUTO) 11.6 K/uL (4.8-10.8)
[2020-05-09 18:40] LABS: APPEARANCE,URINE Clear (CLEAR); BILIRUBIN,URINE Negative (NEGATIVE); COLOR,URINE Yellow (YELLOW); GLUCOSE, URINE (UA) Negative (NEGATIVE); KETONES,URINE Negative (NEGATIVE); LEUKOCYTE ESTERASE ,URINE Trace (NEGATIVE); NITRATE,URINE Negative (NEGATIVE); OCCULT BLOOD,URINE Moderate (NEGATIVE); PROTEIN,URINE POS 1+ mg/dL (NEGATIVE); UROBILINOGEN,URINE 0.2 mg/dL (0.2-1.0)
[2020-05-09 18:44] LABS: HCG,QUAL RESULT NEGATIVE (NEGATIVE)
[2020-05-09 18:49] LABS: CREATININE 0.7 mg/dL (0.5-1.5)
[2020-05-09 18:51] LABS: BACTERIA,URINE Rare /HPF (None Seen); CALCIUM OXALATE CRYSTALS,UR Few /LPF (None Seen); MUCUS,URINE Rare LPF (None Seen); SQUAMOUS EPITHELIAL CELL,UR Rare /HPF (0-2)
[2020-05-09 18:53] LABS: ALBUMIN 3.9 g/dL (3.5-5.0); BILIRUBIN,TOTAL 0.2 mg/dL (0.2-1.0); CRP QUANTITATIVE 4.4 mg/L (0.00-9.0); TOTAL PROTEIN, SERUM 7.8 g/dL (6.0-8.3)
[2020-05-09] MEDS ORDERED: MORPHINE SULFATE 4 MG/1ML SYG ONE (19:30)
[2020-05-09] MEDS ORDERED: TAMSULOSIN HCL 0.4 MG CAP.ER.24H ONE (19:46)
[2020-05-09] MEDS ORDERED: CEFTRIAXONE SODIUM 1 GM ONE (20:06)
== END 2020-05-09 20:50 | disposition home or self-care (01) ==
LOC: EDH 18:03
DX: N20.0 Calculus of kidney (principal); E78.00 Pure hypercholesterolemia, unspecified; Z90.710 Acquired absence of both cervix and uterus
CPT/HCPCS: 36415; 74176; 80053; 81001; 81025; 83690; 85025; 86140; 96361; 96365; 96375 ×2; 99284; J0696; J1885; J2270; J2405; J7030; 96374

== ENCOUNTER 2020-10-26 09:05 | Observation (INO) | payer BC ==
[2020-10-26] VITALS (23 sets, daily range): BP systolic 83–150; BP diastolic 48–87
[~2020-10-26] VITALS: Ht 162.6 cm; Wt 94.3 kg
[~2020-10-26 09:05] MED LIST changes: -CEPH500B PO; +IBUP-2070 PO; +OMEP-420 PO
[2020-10-26 09:41] LABS: APPEARANCE,URINE Clear (CLEAR); BILIRUBIN,URINE Negative (NEGATIVE); COLOR,URINE Yellow (YELLOW); GLUCOSE, URINE (UA) Negative (NEGATIVE); KETONES,URINE Negative (NEGATIVE); LEUKOCYTE ESTERASE ,URINE Moderate (NEGATIVE); NITRATE,URINE Negative (NEGATIVE); OCCULT BLOOD,URINE Nonhemolyzed Trace (NEGATIVE); PROTEIN,URINE Negative (NEGATIVE); UROBILINOGEN,URINE 0.2 mg/dL (0.2-1.0)
[2020-10-26 09:53] LABS: HCG,QUAL RESULT NEGATIVE (NEGATIVE)
[2020-10-26 09:59] LABS: BASOPHILS % (AUTO) 0.2 % (0.0-5.0); EOSINOPHILS % (AUTO) 0.6 % (0.0-8.0); HEMATOCRIT 35.2 % (36-48); LYMPHOCYTES % (AUTO) 8.7 % (21.0-51.0); MEAN CORPUSCULAR HEMOGLOBIN 27.3 pg (27.0-33.0); MEAN CORPUSCULAR HGB CONC 33.5 g/dL (32.0-36.0); MEAN CORPUSCULAR VOLUME 81.5 fL (79-99); MONOCYTES % (AUTO) 8.9 % (3.0-13.0); NEUTROPHILS % (AUTO) 81.3 % (40.0-77.0); PLATELET COUNT (AUTO) 253 K/uL (130-400); RED BLOOD CELL COUNT(AUTO) 4.32 MIL/uL (4.00-5.50); WHITE BLOOD COUNT (AUTO) 8.6 K/uL (4.8-10.8)
[2020-10-26 10:01] LABS: RBC,URINE 0-1 /HPF (0-1)
[2020-10-26 10:02] LABS: BACTERIA,URINE Rare /HPF (None Seen)
[2020-10-26] MEDS ORDERED: LACTATED RINGERS 1000ML 1,000 ML IV ONE (10:14)
[2020-10-26] MEDS ORDERED: MORPHINE 4 MG SYG ONE (10:14)
[2020-10-26] MEDS ORDERED: ONDANSETRON 4MG INJ ONE ×2 (10:14→21:19)
[2020-10-26] MEDS ORDERED: LACTATED RINGERS 1000ML 1,000 ML IV SCH (10:30)
[2020-10-26] MEDS ORDERED: MORPHINE 4 MG SYG IVP SCH (10:30)
[2020-10-26] MEDS ORDERED: ONDANSETRON 4MG INJ IVP SCH ×2 (10:30→12:00)
[2020-10-26 10:45] LABS: ALBUMIN 3.3 g/dL (3.5-5.0); BILIRUBIN,TOTAL 0.5 mg/dL (0.2-1.0); CREATININE 0.8 mg/dL (0.5-1.5); POTASSIUM 3.5 mmol/L (3.5-5.1)
[2020-10-26] MEDS ORDERED: KETOROLAC 30MG VIAL (30MG/ML) ONE (11:41)
[2020-10-26] MEDS ORDERED: MORPHINE 4 MG SYG IV SCH (12:00)
[2020-10-26] MEDS ORDERED: KETOROLAC 30MG VIAL (30MG/ML) IV SCH (12:00)
[2020-10-26] MEDS ORDERED: MORPHINE 2 MG SYG IV PRN (13:30)
[2020-10-26] MEDS ORDERED: CEFTRIAXONE 1G VIAL IV SCH (13:30)
[2020-10-26] MEDS ORDERED: ONDANSETRON 4MG INJ IV PRN (13:30)
[2020-10-26] MEDS ORDERED: LACTULOSE 20 GM/30 ML UDCUP PO PRN (13:30)
[2020-10-26] MEDS ORDERED: HYDROMORPHONE 1 MG INJ IVP ONE (14:30)
[2020-10-26] MEDS: 0.9%NACL 1000ML 1,000 ML IV SCH (14:46)
[2020-10-26] MEDS ORDERED: IOHEXOL-350 50ML VIAL IV ONE (20:25)
[2020-10-26] MEDS ORDERED: SCOPOLAMINE HYDROBROMIDE 1 EACH ADH..PATCH TD ONE (20:43)
[2020-10-26] MEDS: FAMOTIDINE 20MG VIAL IV SCH (21:00)
[2020-10-26] MEDS ORDERED: MIDAZOLAM HCL 1 MG/ML 2ML VIAL ONE (21:03)
[2020-10-26] MEDS ORDERED: LIDOCAINE PF 100MG/5ML (2%) SYRINGE 5ML ONE (21:04)
[2020-10-26] MEDS ORDERED: SUCCINYLCHOLINE 200MG/10ML SYR ONE (21:04)
[2020-10-26] MEDS ORDERED: PROPOFOL 10 MG/ML 20ML VIAL IV ONE (21:04)
[2020-10-26] MEDS ORDERED: FENTANYL CITRATE PF 50 MCG/1 ML 2ML VIAL ONE (21:05)
[2020-10-26] MEDS ORDERED: DEXAMETHASONE SOD PHOSPHATE 10MG/ML 1ML VIAL ONE (21:19)
[2020-10-26] MEDS ORDERED: MEPERIDINE-PF 25 MG/ML SYG ONE (22:24)
[2020-10-27 00:15] VITALS: BP 125/77
[2020-10-27 00:30] VITALS: BP 126/68
[2020-10-27 01:00] VITALS: BP 124/59
[2020-10-27] MEDS ORDERED: CEFTRIAXONE 1G VIAL IV SCH (01:30)
[2020-10-27] MEDS: 0.9%NACL 1000ML 1,000 ML IV SCH (01:36)
[2020-10-27 02:00] VITALS: BP 130/74
[2020-10-27] MEDS ORDERED: KETOROLAC 15MG/ML VIAL (15MG/ML) IV PRN (02:30)
[2020-10-27] MEDS ORDERED: HYDROCODONE/ACETAMINOPHEN 5/325 MG TAB PO PRN (02:30)
[2020-10-27 04:28] VITALS: BP 134/80
[2020-10-27 05:54] LABS: HEMATOCRIT 35.9 % (36-48); LYMPHOCYTES % (AUTO) 9.1 % (21.0-51.0); MEAN CORPUSCULAR HEMOGLOBIN 26.6 pg (27.0-33.0); MEAN CORPUSCULAR HGB CONC 32.6 g/dL (32.0-36.0); MEAN CORPUSCULAR VOLUME 81.6 fL (79-99); MONOCYTES % (AUTO) 3.4 % (3.0-13.0); NEUTROPHILS % (AUTO) 87.3 % (40.0-77.0); PLATELET COUNT (AUTO) 251 K/uL (130-400); WHITE BLOOD COUNT (AUTO) 5.3 K/uL (4.8-10.8)
[2020-10-27 06:37] LABS: BILIRUBIN,TOTAL 0.5 mg/dL (0.2-1.0); CREATININE 0.7 mg/dL (0.5-1.5); POTASSIUM 3.7 mmol/L (3.5-5.1); TOTAL PROTEIN, SERUM 7.1 g/dL (6.0-8.3)
[2020-10-27 08:00] VITALS: BP 121/73
[2020-10-27] MEDS: FAMOTIDINE 20MG VIAL IV SCH (08:08)
[2020-10-27] MEDS ORDERED: LEVO500T89 PO (11:25)
== END 2020-10-27 16:30 | disposition home or self-care (01) ==
LOC: EDH 09:05 → EDHIP 13:24 → 3DH 23:00
PROVIDERS: ADMIT Internal Medicine; ATTEND Internal Medicine
DX: N23 Unspecified renal colic (principal); Z20.822 Contact with and (suspected) exposure to COVID-19; N13.2 Hydronephrosis with renal and ureteral calculous obstruction; E66.9 Obesity, unspecified; K57.90 Diverticulosis of intestine, part unspecified, without perforation or abscess without bleeding; M47.815 Spondylosis without myelopathy or radiculopathy, thoracolumbar region; Q61.5 Medullary cystic kidney; Z68.35 Body mass index [BMI] 35.0-35.9, adult; Z87.440 Personal history of urinary (tract) infections; Z87.442 Personal history of urinary calculi; Z90.710 Acquired absence of both cervix and uterus; Z98.890 Other specified postprocedural states
CPT/HCPCS: 36415; 74176; 74420; 80053; 81001; 81025; 82360; 85025; 87088; 87635; 96361; 96374; 96375; 96376; A4354; C1758; C1769; C1894; C2617; G0378; J0330; J0696; J1100; J1170; J1885; J2001; J2175; J2250; J2270; J2405; J2704; J3010; J3490; J7030; J7120; Q9967

== ENCOUNTER 2020-11-18 13:46 | Inpatient (IN) | payer BC ==
[~2020-11-18] VITALS: Ht 162.6 cm; Wt 93.0 kg
[~2020-11-18 13:46] MED LIST changes: +LEVO500T90 PO
[2020-11-18] MEDS ORDERED: ONDANSETRON 4MG INJ IVP ONE (14:00)
[2020-11-18] MEDS ORDERED: 0.9%NACL 1000ML 1,000 ML IV SCH (14:00)
[2020-11-18] MEDS ORDERED: MORPHINE 4 MG SYG IV ONE (14:00)
[2020-11-18] MEDS ORDERED: KETOROLAC 30MG VIAL (30MG/ML) IV ONE (14:00)
[2020-11-18 14:28] LABS: BASOPHILS % (AUTO) 0.4 % (0.0-5.0); EOSINOPHILS % (AUTO) 1.4 % (0.0-8.0); HEMATOCRIT 38.4 % (36-48); LYMPHOCYTES % (AUTO) 25.3 % (21.0-51.0); MEAN CORPUSCULAR HGB CONC 33.1 g/dL (32.0-36.0); MEAN CORPUSCULAR VOLUME 81.7 fL (79-99); MONOCYTES % (AUTO) 6.8 % (3.0-13.0); NEUTROPHILS % (AUTO) 65.8 % (40.0-77.0); PLATELET COUNT (AUTO) 307 K/uL (130-400); RED CELL DISTRIBUTION WIDTH 14.2 % (11.0-15.5); WHITE BLOOD COUNT (AUTO) 7.1 K/uL (4.8-10.8)
[2020-11-18 14:45] LABS: CREATININE 0.7 mg/dL (0.5-1.5); POTASSIUM 3.3 mmol/L (3.5-5.1)
[2020-11-18 14:57] LABS: ALBUMIN 3.4 g/dL (3.5-5.0); BILIRUBIN,TOTAL 0.3 mg/dL (0.2-1.0); TOTAL PROTEIN, SERUM 7.3 g/dL (6.0-8.3)
[2020-11-18] MEDS ORDERED: MORPHINE 4 MG SYG ONE (15:47)
[2020-11-18 16:09] LABS: APPEARANCE,URINE Clear (CLEAR); BILIRUBIN,URINE Negative (NEGATIVE); COLOR,URINE Yellow (YELLOW); GLUCOSE, URINE (UA) Negative (NEGATIVE); KETONES,URINE Trace mg/dL (NEGATIVE); LEUKOCYTE ESTERASE ,URINE Moderate (NEGATIVE); NITRATE,URINE Negative (NEGATIVE); OCCULT BLOOD,URINE Trace (NEGATIVE); PH,URINE 5.5 (5.0-8.0); PROTEIN,URINE Trace mg/dL (NEGATIVE); UROBILINOGEN,URINE 0.2 mg/dL (0.2-1.0)
[2020-11-18 16:16] LABS: AMPHET/METH SCREEN,URINE NEGATIVE (NEGATIVE); BARBITURATE SCREEN, URINE NEGATIVE (NEGATIVE); BENZODIAZEPINES SCREEN,URINE NEGATIVE (NEGATIVE); CANNABINOID SCREEN,URINE NEGATIVE (NEGATIVE); COCAINE SCREEN,URINE NEGATIVE (NEGATIVE); OPIATE SCREEN,URINE POSITIVE (NEGATIVE); PHENCYCLIDINE SCREEN,URINE NEGATIVE (NEGATIVE)
[2020-11-18 16:32] LABS: BACTERIA,URINE Few /HPF (None Seen)
[2020-11-18 16:33] LABS: CALCIUM OXALATE CRYSTALS,UR Few /LPF (None Seen); MUCUS,URINE Few LPF (None Seen); SQUAMOUS EPITHELIAL CELL,UR Few /HPF (0-2)
[2020-11-18] MEDS ORDERED: CIPR-278 PO (17:31)
[2020-11-18] MEDS ORDERED: TRAM50TA4 PO (17:31)
[2020-11-18] MEDS ORDERED: TAMS-1 PO (17:31)
[2020-11-18] MEDS ORDERED: CEFTRIAXONE 1G VIAL IVP ONE (18:30)
[2020-11-18] MEDS ORDERED: MORPHINE 4 MG SYG IM ONE (18:30)
[2020-11-18] MEDS ORDERED: 0.9%NACL 50ML 50 ML IV ONE (18:48)
[2020-11-18] MEDS: 0.9%NACL 1000ML 1,000 ML IV SCH (18:59)
[2020-11-18] MEDS ORDERED: MORPHINE 2 MG SYG IV PRN (19:00)
[2020-11-18] MEDS ORDERED: POTASSIUM CHLORIDE 10% ELIXIR 20 MEQ/15 ML UDCUP PO PRN (19:00)
[2020-11-18] MEDS: CEFTRIAXONE 1G VIAL IV SCH (19:00)
[2020-11-18] MEDS ORDERED: POTASSIUM CHLORIDE 10MEQ/100ML 100 ML IV PRN (19:00)
[2020-11-18] MEDS ORDERED: KCL 20 MEQ ERTAB PO PRN (19:00)
[2020-11-18] MEDS ORDERED: LIDOCAINE HCL-MPF 1% 2ML VIAL IV PRN (19:00)
[2020-11-18] MEDS: LACTATED RINGERS 1000ML 1,000 ML IV SCH (20:06)
[2020-11-18] MEDS: FAMOTIDINE 20MG VIAL IV SCH (20:26)
[2020-11-18] MEDS ORDERED: KETOROLAC 30MG VIAL (30MG/ML) IV PRN (22:00)
[2020-11-19] MEDS: MORPHINE 4 MG SYG IV PRN ×4 (00:08→23:45)
[2020-11-19] MEDS: ONDANSETRON 4MG INJ IV PRN ×3 (00:23→15:31)
[2020-11-19] MEDS: 0.9%NACL 1000ML 1,000 ML IV SCH ×2 (01:04→07:50)
[2020-11-19] MEDS: LACTATED RINGERS 1000ML 1,000 ML IV SCH ×2 (05:11→08:31)
[2020-11-19 07:07] LABS: BASOPHILS % (AUTO) 0.3 % (0.0-5.0); EOSINOPHILS % (AUTO) 1.7 % (0.0-8.0); LYMPHOCYTES % (AUTO) 24.3 % (21.0-51.0); MEAN CORPUSCULAR HEMOGLOBIN 26.8 pg (27.0-33.0); MEAN CORPUSCULAR HGB CONC 32.6 g/dL (32.0-36.0); MEAN CORPUSCULAR VOLUME 82.3 fL (79-99); MONOCYTES % (AUTO) 5.5 % (3.0-13.0); NEUTROPHILS % (AUTO) 67.8 % (40.0-77.0); PLATELET COUNT (AUTO) 284 K/uL (130-400); RED BLOOD CELL COUNT(AUTO) 4.62 MIL/uL (4.00-5.50); RED CELL DISTRIBUTION WIDTH 14.4 % (11.0-15.5); WHITE BLOOD COUNT (AUTO) 7.2 K/uL (4.8-10.8)
[2020-11-19 07:18] LABS: CREATININE 0.6 mg/dL (0.5-1.5); PHOSPHORUS 2.8 mg/dL (2.5-4.9); POTASSIUM 3.8 mmol/L (3.5-5.1)
[2020-11-19 07:21] LABS: INR 1.07 (0.85-1.15); PROTHROMBIN TIME 11.6 SEC (9.6-11.6)
[2020-11-19 07:23] LABS: PARTIAL THROMBOPLASTIN TIME 29.9 SEC (26.3-35.5)
[2020-11-19] MEDS: FAMOTIDINE 20MG VIAL IV SCH ×2 (08:31→19:26)
[2020-11-19] MEDS ORDERED: POTA-10 PO (10:25)
[2020-11-19 16:35] VITALS: BP 113/73
[2020-11-19] MEDS: CEFTRIAXONE 1G VIAL IV SCH (19:25)
[2020-11-19 20:00] VITALS: BP 113/81
[2020-11-20] VITALS (20 sets, daily range): BP systolic 98–136; BP diastolic 50–81
[2020-11-20] MEDS: LACTATED RINGERS 1000ML 1,000 ML IV SCH ×2 (00:58→20:07)
[2020-11-20] MEDS: MORPHINE 4 MG SYG IV PRN ×2 (05:29→23:08)
[2020-11-20 05:38] LABS: BASOPHILS % (AUTO) 0.3 % (0.0-5.0); EOSINOPHILS % (AUTO) 2.7 % (0.0-8.0); HEMATOCRIT 36.8 % (36-48); LYMPHOCYTES % (AUTO) 28.1 % (21.0-51.0); MEAN CORPUSCULAR HEMOGLOBIN 26.5 pg (27.0-33.0); MEAN CORPUSCULAR HGB CONC 31.8 g/dL (32.0-36.0); MEAN CORPUSCULAR VOLUME 83.3 fL (79-99); MONOCYTES % (AUTO) 8.5 % (3.0-13.0); PLATELET COUNT (AUTO) 270 K/uL (130-400); RED BLOOD CELL COUNT(AUTO) 4.42 MIL/uL (4.00-5.50); WHITE BLOOD COUNT (AUTO) 7.2 K/uL (4.8-10.8)
[2020-11-20 05:55] LABS: ALBUMIN 3.1 g/dL (3.5-5.0); BILIRUBIN,TOTAL 0.2 mg/dL (0.2-1.0); CREATININE 0.5 mg/dL (0.5-1.5); POTASSIUM 3.5 mmol/L (3.5-5.1); TOTAL PROTEIN, SERUM 6.7 g/dL (6.0-8.3)
[2020-11-20] MEDS: FAMOTIDINE 20MG VIAL IV SCH ×2 (09:10→19:24)
[2020-11-20] MEDS ORDERED: LIDOCAINE PF 100MG/5ML (2%) SYRINGE 5ML ONE (11:37)
[2020-11-20] MEDS ORDERED: PROPOFOL 10 MG/ML 20ML VIAL IV ONE (11:37)
[2020-11-20] MEDS ORDERED: MIDAZOLAM HCL 1 MG/ML 2ML VIAL ONE (11:37)
[2020-11-20] MEDS ORDERED: SUCCINYLCHOLINE 200MG/10ML SYR ONE (11:37)
[2020-11-20] MEDS ORDERED: FENTANYL CITRATE PF 50 MCG/1 ML 2ML VIAL ONE (11:38)
[2020-11-20] MEDS ORDERED: SCOPOLAMINE HYDROBROMIDE 1 EACH ADH..PATCH TD ONE (11:43)
[2020-11-20] MEDS ORDERED: ROCURONIUM 10MG/1ML SYR 10 MG/ML ML ONE (11:44)
[2020-11-20] MEDS ORDERED: PHENYLEPHRINE HCL 10 MG/ML 1ML VIAL IV ONE (11:51)
[2020-11-20] MEDS ORDERED: EPHEDRINE SULFATE 50 MG/ML AMPULE ONE (12:07)
[2020-11-20] MEDS ORDERED: ONDANSETRON 4MG INJ ONE (13:00)
[2020-11-20] MEDS ORDERED: MEPERIDINE-PF 25 MG/ML SYG ONE (13:43)
[2020-11-20] MEDS: CEFTRIAXONE 1G VIAL IV SCH (19:24)
[2020-11-21] VITALS: BP 107/63
[2020-11-21 04:00] VITALS: BP 119/61
[2020-11-21] MEDS: MORPHINE 4 MG SYG IV PRN ×2 (04:11→09:18)
[2020-11-21 05:17] LABS: HEMATOCRIT 38.9 % (36-48); MEAN CORPUSCULAR HEMOGLOBIN 27.8 pg (27.0-33.0); MEAN CORPUSCULAR HGB CONC 32.6 g/dL (32.0-36.0); MEAN CORPUSCULAR VOLUME 85.1 fL (79-99); RED BLOOD CELL COUNT(AUTO) 4.57 MIL/uL (4.00-5.50); RED CELL DISTRIBUTION WIDTH 13.8 % (11.0-15.5); WHITE BLOOD COUNT (AUTO) 9.5 K/uL (4.8-10.8)
[2020-11-21 05:22] LABS: CREATININE 0.6 mg/dL (0.5-1.5); POTASSIUM 4.1 mmol/L (3.5-5.1)
[2020-11-21] MEDS: LACTATED RINGERS 1000ML 1,000 ML IV SCH (06:00)
[2020-11-21 08:45] VITALS: BP 100/47
[2020-11-21] MEDS: FAMOTIDINE 20MG VIAL IV SCH (08:59)
== END 2020-11-21 11:25 | disposition home or self-care (01) | DRG 660 ==
LOC: EDH 13:46 → EDHIP 18:33 → OBSVTOIN 18:33 → 3BH 11-19 15:45
PROVIDERS: ADMIT Internal Medicine; ATTEND Internal Medicine
PROC: 0T788DZ Dilation of Bilateral Ureters with Intraluminal Device, Via Natural or Artificial Opening Endoscopic (ICD-10-PCS; principal; 2020-11-20 11:39)
PROC: 0TC78ZZ Extirpation of Matter from Left Ureter, Via Natural or Artificial Opening Endoscopic (ICD-10-PCS; 2020-11-20 11:39)
PROC: 0TC68ZZ Extirpation of Matter from Right Ureter, Via Natural or Artificial Opening Endoscopic (ICD-10-PCS; 2020-11-20 11:39)
PROC: 0TF48ZZ Fragmentation in Left Kidney Pelvis, Via Natural or Artificial Opening Endoscopic (ICD-10-PCS; 2020-11-20 11:39)
DX: N20.2 Calculus of kidney with calculus of ureter (principal); N39.0 Urinary tract infection, site not specified; Q61.5 Medullary cystic kidney; E87.1 Hypo-osmolality and hyponatremia; E46 Unspecified protein-calorie malnutrition; Z20.822 Contact with and (suspected) exposure to COVID-19; R19.7 Diarrhea, unspecified; E87.6 Hypokalemia; Z68.35 Body mass index [BMI] 35.0-35.9, adult; Z87.442 Personal history of urinary calculi; Z90.710 Acquired absence of both cervix and uterus; Z90.49 Acquired absence of other specified parts of digestive tract; Z83.3 Family history of diabetes mellitus; Z84.1 Family history of disorders of kidney and ureter; Z80.9 Family history of malignant neoplasm, unspecified; Z82.49 Family history of ischemic heart disease and other diseases of the circulatory system
CPT/HCPCS: 36415; 74018; 74176; 80048; 80053; 80305; 81001; 82360; 82948; 83690; 83735; 84100; 84702; 85025; 85027; 85610; 85730; 86850; 86900; 86901; 87040; 87088; 87635; 93005; A4354; C1758; C1769; C1894; C2617; G0378; J0330; J0696; J1885; J2001; J2175; J2250; J2270; J2370; J2405; J2704; J3010; J3490; J7030; J7120

== ENCOUNTER 2021-01-30 10:53 | Inpatient (IN) | payer BC ==
[~2021-01-30] VITALS: Ht 162.6 cm; Wt 94.3 kg
[~2021-01-30 10:53] MED LIST changes: -IBUP-2070 PO; -LEVO500T90 PO; +POTA-10 PO
[2021-01-30 11:18] LABS: BASOPHILS % (AUTO) 0.3 % (0.0-5.0); EOSINOPHILS % (AUTO) 1.3 % (0.0-8.0); HEMATOCRIT 41.9 % (36-48); LYMPHOCYTES % (AUTO) 18.1 % (21.0-51.0); MEAN CORPUSCULAR HEMOGLOBIN 27.5 pg (27.0-33.0); MONOCYTES % (AUTO) 7.7 % (3.0-13.0); NEUTROPHILS % (AUTO) 72.1 % (40.0-77.0); PLATELET COUNT (AUTO) 314 K/uL (130-400); RED BLOOD CELL COUNT(AUTO) 4.87 MIL/uL (4.00-5.50); RED CELL DISTRIBUTION WIDTH 13.2 % (11.0-15.5)
[2021-01-30 11:25] LABS: CREATININE 0.7 mg/dL (0.5-1.5); POTASSIUM 3.6 mmol/L (3.5-5.1)
[2021-01-30 11:26] LABS: APPEARANCE,URINE Cloudy (CLEAR); BILIRUBIN,URINE Negative (NEGATIVE); COLOR,URINE Yellow (YELLOW); GLUCOSE, URINE (UA) Negative (NEGATIVE); KETONES,URINE Negative (NEGATIVE); LEUKOCYTE ESTERASE ,URINE Trace (NEGATIVE); NITRATE,URINE Negative (NEGATIVE); OCCULT BLOOD,URINE Negative (NEGATIVE); PH,URINE 5.5 (5.0-8.0); PROTEIN,URINE POS 2+ mg/dL (NEGATIVE); UROBILINOGEN,URINE 0.2 mg/dL (0.2-1.0)
[2021-01-30 11:30] LABS: ALBUMIN 3.7 g/dL (3.5-5.0); BILIRUBIN,TOTAL 0.2 mg/dL (0.2-1.0); TOTAL PROTEIN, SERUM 7.7 g/dL (6.0-8.3)
[2021-01-30] MEDS ORDERED: MORPHINE 4 MG SYG IV SCH (11:30)
[2021-01-30] MEDS ORDERED: ONDANSETRON 4MG INJ IVP SCH (11:30)
[2021-01-30 11:32] LABS: HCG,QUAL RESULT NEGATIVE (NEGATIVE)
[2021-01-30] MEDS ORDERED: ONDANSETRON 4MG INJ ONE (11:40)
[2021-01-30] MEDS ORDERED: MORPHINE 4 MG SYG ONE (11:40)
[2021-01-30 11:49] LABS: BACTERIA,URINE Few /HPF (None Seen); CALCIUM OXALATE CRYSTALS,UR Moderate /LPF (None Seen); RBC,URINE None Seen /HPF (0-1); SQUAMOUS EPITHELIAL CELL,UR 30-50 /HPF (0-2)
[2021-01-30] MEDS ORDERED: KETOROLAC 30MG VIAL (30MG/ML) IM ONE (14:30)
[2021-01-30] MEDS ORDERED: ACETAMINOPHEN 325 MG TAB PO PRN ×2 (17:00)
[2021-01-30] MEDS ORDERED: ACETAMINOPHEN WITH CODEINE 1 TAB TAB PO PRN (17:00)
[2021-01-30] MEDS ORDERED: ONDANSETRON 4MG INJ IV PRN (17:00)
[2021-01-30] MEDS: HYDROMORPHONE 0.5 MG SYG (0.5MG/0.5ML) IVP PRN ×2 (17:45→22:10)
[2021-01-30] MEDS: 0.9%NACL 1000ML 1,000 ML IV SCH (17:48)
[2021-01-30] MEDS: CEFTRIAXONE 1G VIAL IVP SCH (19:09)
[2021-01-31] VITALS (24 sets, daily range): BP systolic 74–131; BP diastolic 27–82
[2021-01-31] MEDS: MORPHINE 4 MG SYG IV PRN ×2 (03:13→07:59)
[2021-01-31 06:47] LABS: BASOPHILS % (AUTO) 0.4 % (0.0-5.0); EOSINOPHILS % (AUTO) 2.5 % (0.0-8.0); HEMATOCRIT 39.1 % (36-48); LYMPHOCYTES % (AUTO) 26.8 % (21.0-51.0); MEAN CORPUSCULAR HEMOGLOBIN 27.7 pg (27.0-33.0); MEAN CORPUSCULAR VOLUME 86.5 fL (79-99); MONOCYTES % (AUTO) 10.4 % (3.0-13.0); NEUTROPHILS % (AUTO) 59.5 % (40.0-77.0); PLATELET COUNT (AUTO) 285 K/uL (130-400); RED BLOOD CELL COUNT(AUTO) 4.52 MIL/uL (4.00-5.50); RED CELL DISTRIBUTION WIDTH 13.2 % (11.0-15.5); WHITE BLOOD COUNT (AUTO) 6.8 K/uL (4.8-10.8)
[2021-01-31 07:01] LABS: ALBUMIN 3.2 g/dL (3.5-5.0); BILIRUBIN,TOTAL 0.3 mg/dL (0.2-1.0); CREATININE 0.6 mg/dL (0.5-1.5); POTASSIUM 3.9 mmol/L (3.5-5.1); TOTAL PROTEIN, SERUM 6.8 g/dL (6.0-8.3)
[2021-01-31] MEDS ORDERED: PANTOPRAZOLE 40 MG TAB DR PO SCH (09:00)
[2021-01-31] MEDS ORDERED: TAMSULOSIN HCL 0.4 MG CAP.ER.24H PO SCH (09:00)
[2021-01-31] MEDS ORDERED: HYDROCHLOROTHIAZIDE 25 MG TABLET PO SCH (09:00)
[2021-01-31] MEDS ORDERED: POTASSIUM CHLORIDE 10MEQ SR TAB PO SCH (09:00)
[2021-01-31] MEDS: HYDROMORPHONE 0.5 MG SYG (0.5MG/0.5ML) IVP PRN ×2 (10:27→17:20)
[2021-01-31] MEDS: 0.9%NACL 1000ML 1,000 ML IV SCH ×2 (12:23→18:39)
[2021-01-31] MEDS ORDERED: SCOPOLAMINE HYDROBROMIDE 1 EACH ADH..PATCH TD ONE (14:03)
[2021-01-31] MEDS ORDERED: SUCCINYLCHOLINE 200MG/10ML SYR ONE (14:14)
[2021-01-31] MEDS ORDERED: LIDOCAINE PF 100MG/5ML (2%) SYRINGE 5ML ONE ×2 (14:14→14:32)
[2021-01-31] MEDS ORDERED: DEXAMETHASONE SOD PHOSPHATE 10MG/ML 1ML VIAL ONE (14:14)
[2021-01-31] MEDS ORDERED: PROPOFOL 10 MG/ML 20ML VIAL IV ONE ×2 (14:15→15:24)
[2021-01-31] MEDS ORDERED: FENTANYL CITRATE PF 50 MCG/1 ML 2ML VIAL ONE ×3 (14:15→15:17)
[2021-01-31] MEDS ORDERED: ROCURONIUM 10MG/1ML SYR 10 MG/ML ML ONE (14:15)
[2021-01-31] MEDS ORDERED: GLYCOPYRROLATE 1 MG/5 ML SYRINGE ONE (14:15)
[2021-01-31] MEDS ORDERED: ONDANSETRON 4MG INJ ONE (14:15)
[2021-01-31] MEDS ORDERED: NEOSTIGMINE 5MG/5ML SYR IV ONE (14:15)
[2021-01-31] MEDS ORDERED: MIDAZOLAM HCL 1 MG/ML 2ML VIAL ONE (14:15)
[2021-01-31] MEDS ORDERED: IOHEXOL-350 50ML VIAL IV ONE (14:29)
[2021-01-31] MEDS ORDERED: EPHEDRINE SULFATE 50 MG/ML AMPULE ONE (14:51)
[2021-01-31] MEDS ORDERED: SCOPOLAMINE HYDROBROMIDE 1 EACH ADH..PATCH TD SCH (15:00)
[2021-01-31] MEDS ORDERED: PHENYLEPHRINE HCL 10 MG/ML 1ML VIAL IV ONE (15:13)
[2021-01-31] MEDS ORDERED: MEPERIDINE-PF 25 MG/ML SYG ONE ×2 (15:38→15:53)
[2021-01-31] MEDS: CEFTRIAXONE 1G VIAL IVP SCH (17:13)
[2021-01-31] MEDS ORDERED: KETOROLAC 15MG/ML VIAL (15MG/ML) IV PRN (17:30)
[2021-01-31] MEDS ORDERED: SIMETHICONE 80 MG TAB.CHEW ONE (23:29)
== END 2021-02-01 00:15 | disposition home or self-care (01) | DRG 660 ==
LOC: EDH 10:53 → EDHIP 16:47 → OBSVTOIN 16:47 → 3BH 01-31 04:42
PROVIDERS: ADMIT Hospitalist; ATTEND Hospitalist
PROC: 0TC78ZZ Extirpation of Matter from Left Ureter, Via Natural or Artificial Opening Endoscopic (ICD-10-PCS; principal; 2021-01-31 14:28)
PROC: 0T778DZ Dilation of Left Ureter with Intraluminal Device, Via Natural or Artificial Opening Endoscopic (ICD-10-PCS; 2021-01-31 14:28)
DX: N20.2 Calculus of kidney with calculus of ureter (principal); Q61.5 Medullary cystic kidney; I10 Essential (primary) hypertension; N29 Other disorders of kidney and ureter in diseases classified elsewhere; Z20.822 Contact with and (suspected) exposure to COVID-19; Z90.710 Acquired absence of both cervix and uterus; Z90.49 Acquired absence of other specified parts of digestive tract; Z87.442 Personal history of urinary calculi; Z83.3 Family history of diabetes mellitus; Z84.1 Family history of disorders of kidney and ureter; Z80.9 Family history of malignant neoplasm, unspecified; Z82.49 Family history of ischemic heart disease and other diseases of the circulatory system
CPT/HCPCS: 36415; 74018; 74176; 80053; 81001; 81025; 82360; 85025; 87088; 87635; A4354; C1758; C1769; C1894; C2617; G0378; J0330; J0696; J1100; J1170; J1885; J2001; J2175; J2250; J2270; J2370; J2405; J2704; J2710; J3010; J3490; J7030; Q9967

== ENCOUNTER 2021-04-04 13:46 | Emergency (ER) | payer BC ==
[~2021-04-04] VITALS: Ht 162.6 cm; Wt 96.2 kg
[2021-04-04] MEDS ORDERED: 0.9%NACL 1000ML 1,000 ML IV ONE (15:00)
[2021-04-04] MEDS ORDERED: MORPHINE 4 MG SYG IV ONE (15:30)
[2021-04-04] MEDS ORDERED: ONDANSETRON 4MG INJ IVP ONE (15:30)
[2021-04-04] MEDS ORDERED: KETOROLAC 15MG/ML VIAL (15MG/ML) IV ONE (15:30)
[2021-04-04] MEDS ORDERED: DiphenhydrAMINE HCL 50 MG/ML VIAL ONE (15:57)
[2021-04-04] MEDS ORDERED: DiphenhydrAMINE HCL 50 MG/ML VIAL IV ONE (16:00)
[2021-04-04 16:04] LABS: BASOPHILS % (AUTO) 0.4 % (0.0-5.0); EOSINOPHILS % (AUTO) 2.5 % (0.0-8.0); HEMATOCRIT 37.1 % (36-48); LYMPHOCYTES % (AUTO) 29.8 % (21.0-51.0); MEAN CORPUSCULAR HEMOGLOBIN 27.2 pg (27.0-33.0); MEAN CORPUSCULAR HGB CONC 32.1 g/dL (32.0-36.0); MEAN CORPUSCULAR VOLUME 84.9 fL (79-99); MONOCYTES % (AUTO) 9.8 % (3.0-13.0); NEUTROPHILS % (AUTO) 57.1 % (40.0-77.0); PLATELET COUNT (AUTO) 283 K/uL (130-400); RED BLOOD CELL COUNT(AUTO) 4.37 MIL/uL (4.00-5.50); RED CELL DISTRIBUTION WIDTH 13.6 % (11.0-15.5); WHITE BLOOD COUNT (AUTO) 5.3 K/uL (4.8-10.8)
[2021-04-04 16:15] LABS: CREATININE 0.6 mg/dL (0.5-1.5); POTASSIUM 3.6 mmol/L (3.5-5.1)
[2021-04-04 16:20] LABS: ALBUMIN 3.3 g/dL (3.5-5.0); BILIRUBIN,TOTAL 0.1 mg/dL (0.2-1.0); TOTAL PROTEIN, SERUM 7.1 g/dL (6.0-8.3)
[2021-04-04 17:11] VITALS: BP 114/44
[2021-04-04 17:18] LABS: APPEARANCE,URINE Cloudy (CLEAR); BILIRUBIN,URINE Negative (NEGATIVE); COLOR,URINE Yellow (YELLOW); GLUCOSE, URINE (UA) Negative (NEGATIVE); KETONES,URINE Negative (NEGATIVE); LEUKOCYTE ESTERASE ,URINE Trace (NEGATIVE); NITRATE,URINE Negative (NEGATIVE); OCCULT BLOOD,URINE Negative (NEGATIVE); PH,URINE 6.5 (5.0-8.0); PROTEIN,URINE Negative (NEGATIVE); UROBILINOGEN,URINE 0.2 mg/dL (0.2-1.0)
[2021-04-04 17:24] LABS: HCG,QUAL RESULT NEGATIVE (NEGATIVE)
[2021-04-04 17:25] LABS: BACTERIA,URINE Few /HPF (None Seen); RBC,URINE 0-1 /HPF (0-1)
[2021-04-04 17:26] LABS: AMORPHOUS SEDIMENT,UR Rare /LPF (None Seen); SQUAMOUS EPITHELIAL CELL,UR Few /HPF (0-2)
[2021-04-04] MEDS ORDERED: HYDROMORPHONE 0.5 MG SYG (0.5MG/0.5ML) IVP ONE (17:30)
[2021-04-04] MEDS ORDERED: NAPR500T6 PO (17:52)
[2021-04-04] MEDS ORDERED: ACET1TAB25 PO (17:52)
[2021-04-04] MEDS ORDERED: ONDA4TAB10 PO (17:52)
[2021-04-04] MEDS ORDERED: TAMS-1 PO (17:52)
[2021-04-04] MEDS ORDERED: CEFTRIAXONE 1G VIAL ONE (17:53)
[2021-04-04] MEDS ORDERED: CEFTRIAXONE 1G VIAL IV ONE (18:00)
== END 2021-04-04 18:20 | disposition home or self-care (01) ==
LOC: EDH 13:46
DX: N20.0 Calculus of kidney (principal); Z90.710 Acquired absence of both cervix and uterus; Z87.442 Personal history of urinary calculi
CPT/HCPCS: 36415; 74176; 80053; 81001; 81025; 85025; 96361; 96374; 96375; 99284; J0696; J1170; J1200; J1885; J2270; J2405; J7030

== ENCOUNTER 2021-06-25 05:23 | Emergency (ER) | payer BC ==
[~2021-06-25] VITALS: Ht 162.6 cm; Wt 98.4 kg
[~2021-06-25 05:23] MED LIST changes: +ACET-2079 PO; +CEPH500B PO; +DICY20TA2 PO; +HYOS-28 PO; +METO-296 PO; +NAPR500T6 PO; +ONDA4TAB10 PO; +PANT40TA PO; +PHEN12S PR
[2021-06-25 05:57] LABS: BASOPHILS % (AUTO) 0.2 % (0.0-5.0); EOSINOPHILS % (AUTO) 1.8 % (0.0-8.0); HEMATOCRIT 38.1 % (36-48); LYMPHOCYTES % (AUTO) 27.1 % (21.0-51.0); MEAN CORPUSCULAR HEMOGLOBIN 27.4 pg (27.0-33.0); MEAN CORPUSCULAR HGB CONC 32.8 g/dL (32.0-36.0); MEAN CORPUSCULAR VOLUME 83.4 fL (79-99); MONOCYTES % (AUTO) 8.2 % (3.0-13.0); NEUTROPHILS % (AUTO) 62.3 % (40.0-77.0); PLATELET COUNT (AUTO) 278 K/uL (130-400); RED BLOOD CELL COUNT(AUTO) 4.57 MIL/uL (4.00-5.50); RED CELL DISTRIBUTION WIDTH 13.2 % (11.0-15.5); WHITE BLOOD COUNT (AUTO) 8.2 K/uL (4.8-10.8)
[2021-06-25 05:59] LABS: APPEARANCE,URINE Clear (CLEAR); BILIRUBIN,URINE Negative (NEGATIVE); COLOR,URINE Yellow (YELLOW); GLUCOSE, URINE (UA) Negative (NEGATIVE); KETONES,URINE Negative (NEGATIVE); LEUKOCYTE ESTERASE ,URINE Small (NEGATIVE); NITRATE,URINE Negative (NEGATIVE); OCCULT BLOOD,URINE Negative (NEGATIVE); PROTEIN,URINE Trace mg/dL (NEGATIVE); UROBILINOGEN,URINE 0.2 mg/dL (0.2-1.0)
[2021-06-25] MEDS ORDERED: ACETAMINOPHEN 325 MG TAB PO ONE (06:00)
[2021-06-25 06:02] LABS: HCG,QUAL RESULT NEGATIVE (NEGATIVE)
[2021-06-25 06:05] LABS: CREATININE 0.6 mg/dL (0.5-1.5); POTASSIUM 3.6 mmol/L (3.5-5.1)
[2021-06-25 06:06] LABS: AMPHET/METH SCREEN,URINE NEGATIVE (NEGATIVE); BARBITURATE SCREEN, URINE NEGATIVE (NEGATIVE); BENZODIAZEPINES SCREEN,URINE NEGATIVE (NEGATIVE); CANNABINOID SCREEN,URINE NEGATIVE (NEGATIVE); COCAINE SCREEN,URINE NEGATIVE (NEGATIVE); OPIATE SCREEN,URINE POSITIVE (NEGATIVE); PHENCYCLIDINE SCREEN,URINE NEGATIVE (NEGATIVE)
[2021-06-25 06:10] LABS: ALBUMIN 3.2 g/dL (3.5-5.0); BACTERIA,URINE Few /HPF (None Seen); BILIRUBIN,TOTAL 0.3 mg/dL (0.2-1.0)
[2021-06-25] MEDS ORDERED: IOHEXOL 350 MG/ML 100ML INFUS..BTL IV ONE (06:45)
[2021-06-25] MEDS ORDERED: KETOROLAC 30MG VIAL (30MG/ML) ONE (07:57)
[2021-06-25] MEDS ORDERED: KETOROLAC 30MG VIAL (30MG/ML) IVP SCH (08:00)
[2021-06-25] MEDS ORDERED: CEPH500B PO (08:40)
[2021-06-25] MEDS ORDERED: ACET-2079 PO (08:40)
[2021-06-25 08:51] VITALS: BP 114/71
== END 2021-06-25 08:52 | disposition home or self-care (01) ==
LOC: EDH 05:23
DX: N20.0 Calculus of kidney (principal); N39.0 Urinary tract infection, site not specified; Z79.899 Other long term (current) drug therapy; Z98.890 Other specified postprocedural states; Z90.49 Acquired absence of other specified parts of digestive tract
CPT/HCPCS: 36415; 74177; 80053; 80305; 81001; 81025; 85025; 87088; 96374; 99284; J1885; Q9967

== ENCOUNTER 2021-09-28 14:46 | Emergency (ER) | payer BC ==
[~2021-09-28] VITALS: Ht 162.6 cm; Wt 97.5 kg
[~2021-09-28 14:46] MED LIST changes: -POTA-10 PO; +POTA-200 PO
[2021-09-28 14:48] VITALS: BP 153/102
[2021-09-28 15:14] LABS: BASOPHILS % (AUTO) 0.3 % (0.0-5.0); HEMATOCRIT 39.6 % (36-48); LYMPHOCYTES % (AUTO) 19.6 % (21.0-51.0); MEAN CORPUSCULAR HEMOGLOBIN 27.9 pg (27.0-33.0); MEAN CORPUSCULAR HGB CONC 33.6 g/dL (32.0-36.0); MEAN CORPUSCULAR VOLUME 83.2 fL (79-99); MONOCYTES % (AUTO) 5.6 % (3.0-13.0); NEUTROPHILS % (AUTO) 72.9 % (40.0-77.0); PLATELET COUNT (AUTO) 309 K/uL (130-400); RED BLOOD CELL COUNT(AUTO) 4.76 MIL/uL (4.00-5.50); RED CELL DISTRIBUTION WIDTH 13.1 % (11.0-15.5); WHITE BLOOD COUNT (AUTO) 9.3 K/uL (4.8-10.8)
[2021-09-28 15:16] LABS: APPEARANCE,URINE CLEAR (CLEAR); BILIRUBIN,URINE NEGATIVE (NEGATIVE); COLOR,URINE YELLOW (YELLOW); GLUCOSE, URINE (UA) NEGATIVE (NEGATIVE); KETONES,URINE NEGATIVE (NEGATIVE); LEUKOCYTE ESTERASE ,URINE NEGATIVE (NEGATIVE); NITRATE,URINE NEGATIVE (NEGATIVE); OCCULT BLOOD,URINE NEGATIVE (NEGATIVE); PROTEIN,URINE NEGATIVE (NEGATIVE); UROBILINOGEN,URINE 0.2 mg/dL (0.2-1.0)
[2021-09-28] MEDS: KETOROLAC 15MG/ML VIAL (15MG/ML) IV ONE (15:23)
[2021-09-28] MEDS: MORPHINE 4 MG SYG IVP ONE ×2 (15:23→16:49)
[2021-09-28] MEDS: ONDANSETRON 4MG INJ IVP ONE (15:23)
[2021-09-28] MEDS: 0.9%NACL 1000ML 1,000 ML IV ONE (15:23)
[2021-09-28 15:29] LABS: CREATININE 0.8 mg/dL (0.5-1.5); HCG,QUALITATIVE URINE NEGATIVE (NEGATIVE); POTASSIUM 3.3 mmol/L (3.5-5.1)
[2021-09-28 15:33] LABS: ALBUMIN 3.6 g/dL (3.5-5.0); TOTAL PROTEIN, SERUM 7.6 g/dL (6.0-8.3)
[2021-09-28] MEDS ORDERED: ONDA4TAB10 PO (16:40)
[2021-09-28] MEDS ORDERED: ACET-2079 PO (16:40)
== END 2021-09-28 16:52 | disposition home or self-care (01) ==
LOC: EDH 14:46
DX: N20.0 Calculus of kidney (principal); Z79.899 Other long term (current) drug therapy; Z98.890 Other specified postprocedural states; Z90.49 Acquired absence of other specified parts of digestive tract
CPT/HCPCS: 99284; 74176; 96374; 96375; 96361; 80053; 85025; 81003; 81025; 36415; 96376; J7030; J2405; J2270 ×2; J1885

== ENCOUNTER 2021-12-11 12:15 | Emergency (ER) | payer BC ==
[~2021-12-11] VITALS: Ht 162.6 cm; Wt 97.5 kg
[2021-12-11] MEDS ORDERED: KETOROLAC 30MG VIAL (30MG/ML) IVP ONE (13:00)
[2021-12-11] MEDS ORDERED: TAMSULOSIN HCL 0.4 MG CAP.ER.24H PO SCH (13:00)
[2021-12-11] MEDS ORDERED: 0.9%NACL 1000ML 1,000 ML IV SCH ×2 (13:00→14:30)
[2021-12-11] MEDS ORDERED: ONDANSETRON 4MG INJ IVP ONE (13:00)
[2021-12-11 13:05] LABS: BASOPHILS % (AUTO) 0.2 % (0.0-5.0); EOSINOPHILS % (AUTO) 0.2 % (0.0-8.0); LYMPHOCYTES % (AUTO) 10.8 % (21.0-51.0); MEAN CORPUSCULAR HEMOGLOBIN 27.6 pg (27.0-33.0); MEAN CORPUSCULAR HGB CONC 33.2 g/dL (32.0-36.0); MEAN CORPUSCULAR VOLUME 83.2 fL (79-99); MONOCYTES % (AUTO) 5.3 % (3.0-13.0); NEUTROPHILS % (AUTO) 83.1 % (40.0-77.0); PLATELET COUNT (AUTO) 322 K/uL (130-400); RED BLOOD CELL COUNT(AUTO) 4.57 MIL/uL (4.00-5.50); WHITE BLOOD COUNT (AUTO) 9.1 K/uL (4.8-10.8)
[2021-12-11 13:07] LABS: BILIRUBIN,URINE NEGATIVE (NEGATIVE); COLOR,URINE LIGHT-YELLOW (YELLOW); GLUCOSE, URINE (UA) NEGATIVE (NEGATIVE); KETONES,URINE NEGATIVE (NEGATIVE); LEUKOCYTE ESTERASE ,URINE NEGATIVE Leu/uL (NEGATIVE); NITRATE,URINE NEGATIVE (NEGATIVE); OCCULT BLOOD,URINE SMALL (NEGATIVE); PROTEIN,URINE 50 mg/dL (NEGATIVE); UROBILINOGEN,URINE 0.2 mg/dL (0.2-1.0)
[2021-12-11 13:10] LABS: HCG,QUALITATIVE URINE NEGATIVE (NEGATIVE)
[2021-12-11 13:13] LABS: APPEARANCE,URINE SLIGHTLY CLOUDY (CLEAR)
[2021-12-11 13:14] LABS: BACTERIA,URINE RARE /HPF (None Seen); MUCUS,URINE RARE LPF (None Seen); RBC,URINE 26-50 /HPF (0-1); SQUAMOUS EPITHELIAL CELL,UR MOD /HPF (0-2)
[2021-12-11 13:15] LABS: CARBON DIOXIDE 25 mmol/L (21-32); CHLORIDE 104 mmol/L (101-111); CREATININE 0.8 mg/dL (0.5-1.5); GLOMERULAR FILTR. RATE CALC 84 mL/min (>60); GLUCOSE,RANDOM 105 mg/dL (70-105); SODIUM SERUM 138 mmol/L (136-145); UREA NITROGEN, BLOOD 14 mg/dL (7-18)
[2021-12-11 13:20] LABS: ALANINE AMINOTRANSFERASE 38 U/L (12-78); ALBUMIN 3.6 g/dL (3.5-5.0); ASPARTATE AMINOTRANSFERASE 32 U/L (10-37); CRP QUANTITATIVE < 2.00 mg/L (0.00-9.0); TOTAL PROTEIN, SERUM 7.4 g/dL (6.0-8.3)
[2021-12-11] MEDS: PROMETHAZINE HCL 25 MG/ML 1ML AMPULE IM ONE ×2 (14:21→14:29)
[2021-12-11] MEDS ORDERED: MORPHINE 4 MG SYG IVP ONE (14:30)
[2021-12-11] MEDS ORDERED: CEFTRIAXONE 1G VIAL IVP ONE (15:00)
[2021-12-11] MEDS ORDERED: ZOSYN 3.375GM +NS 50ML IV SCH (15:00)
[2021-12-11 18:20] VITALS: BP 122/69
== END 2021-12-11 18:23 | disposition left against medical advice (07) ==
LOC: EDH 12:15 → UNDOADMOB 15:01 → EDHIP 15:01 → UNDODISOB 18:15 → EDHIP 18:23
DX: N13.2 Hydronephrosis with renal and ureteral calculous obstruction (principal); N39.0 Urinary tract infection, site not specified; Z90.710 Acquired absence of both cervix and uterus; Z79.899 Other long term (current) drug therapy
CPT/HCPCS: 99284; 74176; 96365; 96375; 96361; 96366; 84484; 80053; 87088; 85025; 86140; 81001; 81025; 36415; 96372; J7030; J2550; J0696; J2405; J2270; J1885; J2543; G0378

== ENCOUNTER 2022-06-12 15:00 | Emergency (ER) | payer BC ==
[~2022-06-12] VITALS: Ht 162.6 cm; Wt 97.5 kg
[~2022-06-12 15:00] MED LIST changes: -POTA10CA44 PO; +POTA10CA45 PO
[2022-06-12 15:47] VITALS: BP 138/77
[2022-06-12 16:08] LABS: BASOPHILS % (AUTO) 0.3 % (0.0-5.0); EOSINOPHILS % (AUTO) 1.6 % (0.0-8.0); HEMATOCRIT 41.6 % (36-48); LYMPHOCYTES % (AUTO) 26.2 % (21.0-51.0); MEAN CORPUSCULAR HEMOGLOBIN 27.4 pg (27.0-33.0); MEAN CORPUSCULAR HGB CONC 32.7 g/dL (32.0-36.0); MEAN CORPUSCULAR VOLUME 83.7 fL (79-99); MONOCYTES % (AUTO) 6.9 % (3.0-13.0); NEUTROPHILS % (AUTO) 64.6 % (40.0-77.0); PLATELET COUNT (AUTO) 351 K/uL (130-400); RED BLOOD CELL COUNT(AUTO) 4.97 MIL/uL (4.00-5.50); RED CELL DISTRIBUTION WIDTH 13.3 % (11.0-15.5); WHITE BLOOD COUNT (AUTO) 8.9 K/uL (4.8-10.8)
[2022-06-12 16:19] LABS: CREATININE 0.8 mg/dL (0.5-1.5); POTASSIUM 3.5 mmol/L (3.5-5.1)
[2022-06-12 18:05] LABS: APPEARANCE,URINE CLEAR (CLEAR); BILIRUBIN,URINE NEGATIVE (NEGATIVE); COLOR,URINE LIGHT-YELLOW (YELLOW); GLUCOSE, URINE (UA) NEGATIVE (NEGATIVE); KETONES,URINE NEGATIVE (NEGATIVE); LEUKOCYTE ESTERASE ,URINE 25 Leu/uL (NEGATIVE); NITRATE,URINE NEGATIVE (NEGATIVE); OCCULT BLOOD,URINE NEGATIVE (NEGATIVE); PROTEIN,URINE NEGATIVE (NEGATIVE); UROBILINOGEN,URINE 0.2 mg/dL (0.2-1.0)
[2022-06-12] MEDS ORDERED: METH-811 PO (18:07)
[2022-06-12] MEDS ORDERED: IBUP-2070 PO (18:07)
[2022-06-12 18:10] LABS: BACTERIA,URINE RARE /HPF (None Seen); MUCUS,URINE RARE LPF (None Seen); SQUAMOUS EPITHELIAL CELL,UR RARE /HPF (0-2); YEAST,URINE BUDDING FEW /HPF (None Seen)
== END 2022-06-12 18:21 | disposition home or self-care (01) ==
LOC: EDH 15:00
DX: M51.26 Other intervertebral disc displacement, lumbar region (principal); Z79.1 Long term (current) use of non-steroidal anti-inflammatories (NSAID); Z79.899 Other long term (current) drug therapy
CPT/HCPCS: 36415; 74176; 80048; 81001; 85025; 87088

== ENCOUNTER 2022-10-23 01:06 | Emergency (ER) | payer BC ==
[~2022-10-23] VITALS: Ht 162.6 cm; Wt 94.8 kg
[~2022-10-23 01:06] MED LIST changes: -ACET-2079 PO; -CEPH500B PO; -DICY20TA2 PO; -HYOS-28 PO; +IBUP-1493 PO; +IBUP-2070 PO; -METO-296 PO; -NAPR500T6 PO; +ONDA-104 PO; -ONDA4TAB10 PO; -PHEN12S PR; -POTA10CA45 PO; +POTA10CA85 PO
[2022-10-23 01:38] LABS: BASOPHILS # (AUTO) 0.03 K/uL (0.00-0.20); BASOPHILS % (AUTO) 0.2 % (0.0-5.0); EOSINOPHILS # (AUTO) 0.07 K/uL (0.00-0.70); EOSINOPHILS % (AUTO) 0.5 % (0.0-8.0); HEMATOCRIT 38.8 % (36-48); IMMATURE GRANULOCYTE ABSOLUTE 0.06 K/uL (0-1); LYMPHOCYTES # (AUTO) 1.6 K/uL (1.0-4.8); LYMPHOCYTES % (AUTO) 11.8 % (21.0-51.0); MEAN CORPUSCULAR HEMOGLOBIN 27.6 pg (27.0-33.0); MEAN CORPUSCULAR VOLUME 83.8 fL (79-99); MONOCYTES # (AUTO) 0.6 K/uL (0.1-1.0); MONOCYTES % (AUTO) 4.8 % (3.0-13.0); NEUTROPHILS % (AUTO) 82.3 % (40.0-77.0); PLATELET COUNT (AUTO) 300 K/uL (130-400); RED BLOOD CELL COUNT(AUTO) 4.63 MIL/uL (4.00-5.50); RED CELL DISTRIBUTION WIDTH 13.2 % (11.0-15.5); WHITE BLOOD COUNT (AUTO) 13.4 K/uL (4.8-10.8)
[2022-10-23 01:47] LABS: POTASSIUM 3.7 mmol/L (3.5-5.1)
[2022-10-23 01:53] LABS: ALBUMIN 3.6 g/dL (3.5-5.0); BILIRUBIN,TOTAL 0.1 mg/dL (0.2-1.0); TOTAL PROTEIN, SERUM 7.5 g/dL (6.0-8.3)
[2022-10-23] MEDS ORDERED: 0.9%NACL 1000ML 1,000 ML IV ONE (02:00)
[2022-10-23] MEDS ORDERED: METOCLOPRAMIDE 10 MG/2 ML VIAL IVP ONE (02:00)
[2022-10-23] MEDS ORDERED: FAMOTIDINE 20MG VIAL IV ONE (02:00)
[2022-10-23] MEDS ORDERED: MORPHINE 4 MG SYG IVP ONE (02:00)
[2022-10-23] MEDS ORDERED: KETOROLAC 30MG VIAL (30MG/ML) IVP ONE (02:00)
[2022-10-23 02:21] LABS: APPEARANCE,URINE CLOUDY (CLEAR); BILIRUBIN,URINE NEGATIVE (NEGATIVE); COLOR,URINE LIGHT-YELLOW (YELLOW); GLUCOSE, URINE (UA) NEGATIVE (NEGATIVE); KETONES,URINE NEGATIVE (NEGATIVE); LEUKOCYTE ESTERASE ,URINE 500 Leu/uL (NEGATIVE); NITRATE,URINE NEGATIVE (NEGATIVE); OCCULT BLOOD,URINE SMALL (NEGATIVE); PH,URINE 5.5 (5.0-8.0); PROTEIN,URINE 30 mg/dL (NEGATIVE); UROBILINOGEN,URINE 0.2 mg/dL (0.2-1.0)
[2022-10-23 02:24] LABS: ADD UA MICROSCOPIC YES
[2022-10-23 02:28] LABS: BACTERIA,URINE RARE /HPF (None Seen); CALCIUM OXALATE CRYSTALS,UR RARE /LPF (None Seen); MUCUS,URINE RARE LPF (None Seen); RBC,URINE 26-50 /HPF (0-1); SQUAMOUS EPITHELIAL CELL,UR RARE /HPF (0-2); WBC,URINE TNTC /HPF (0-1); YEAST,URINE BUDDING FEW /HPF (None Seen)
[2022-10-23] MEDS ORDERED: HYDROMORPHONE 2 MG VIAL (2MG/ML) IVP ONE (04:00)
[2022-10-23] MEDS ORDERED: HYDROMORPHONE 1 MG INJ IVP ONE (04:00)
[2022-10-23 04:21] VITALS: BP 143/89; PULSE 90; RESP 17; O2SAT 100
[2022-10-23] MEDS ORDERED: METO-296 PO (04:24)
[2022-10-23] MEDS ORDERED: CEPH500B PO (04:24)
[2022-10-23] MEDS ORDERED: CEFTRIAXONE 2GM VIAL IVPB ONE (04:30)
== END 2022-10-23 04:44 | disposition home or self-care (01) ==
LOC: EDH 01:06
DX: N39.0 Urinary tract infection, site not specified (principal); N20.0 Calculus of kidney; Z79.1 Long term (current) use of non-steroidal anti-inflammatories (NSAID); Z79.899 Other long term (current) drug therapy; Z90.710 Acquired absence of both cervix and uterus
CPT/HCPCS: 99284; 96375; 96374; 80053; 83690; 85025; 87088; 81001; 36415; J3490; J1170; J7030; J0696; J2270; J1885; J2765